=== PATIENT | female | born 1970 | race Two or more races ===

== ENCOUNTER 2024-06-09 18:40 | Emergency (ER) | payer MEDICAID, SELFPAY ==
[2024-06-09 18:57] VITALS: BP 112/77; PULSE 110; RESP 18; TEMP 37.2; O2SAT 96; BMI 54.6
--- NOTE | 2024-06-09 18:59 | PD.EDRME ---
Rapid Medical Screening Exam RME Arrival date/time: 06/09/24 18:40 54 year old female present to ED for c/o abdominal pain for 4 days I have greeted and performed a focused initial assessment of this patient. A comprehensive ED assessment and evaluation of the patient, analysis of all test results, and completion of the medical decision making process will be conducted by additional ED providers. Chief Complaint: Abdominal Pain Time Seen by Provider: 06/09/24 18:45 Vital signs: Vital Signs Temperature 98.9 F 06/09/24 18:57 Pulse Rate 110 H 06/09/24 18:57 Respiratory Rate 18 06/09/24 18:57 Blood Pressure 112/77 06/09/24 18:57 Pulse Oximetry (%) 96 06/09/24 18:57 Oxygen Delivery Method Room Air 06/09/24 18:57
--- NOTE | 2024-06-09 19:00 | EKG_ITS ---
[facility] Test Date: 2024-06-09 Pat Name: MICHAEL PELAEZ Department: Room: - Gender: Female Warp Splitter: : 1970 Requested By: Fernie Richey Order Number: [id number] Reading MD: Fernie Richey Measurements Intervals [place] Rate: 88 P: 35 [place]: 150 QRS: 3 QRSD: 86 T: 17 QT: 300 QTc: 365 Interpretive Statements SINUS RHYTHM WITH MARKED SINUS ARRHYTHMIA LOW QRS VOLTAGE IN PRECORDIAL LEADS [QRS DEFLECTION < 1.0 mV IN CHEST LEADS] Compared to ECG 05/12/2024 14:35:19 Sinus tachycardia no longer present /store/S0/[id number]
[2024-06-09] MEDS: ONDANSETRON ODT 4 MG TABRAP PO (19:06)
[2024-06-09] MEDS: MG HYD/AL HYD/SIME (Maalox Reg) SUSP 30 ML UDC PO (19:07)
[2024-06-09 19:45] LABS: Collection Type, Urine Voided; RBC,Urine 0 /hpf (0-3)
[2024-06-09 20:01] LABS: Basophils % (Auto) 0 % (0-2.5); Monocytes # (Auto) 0.5 Thou/mm3 (0.0-0.8); Nucleated Red Blood Cell % 0 /100 WBC (0); White Blood Count 6.2 Thou/mm3 (3.6-11.0)
[2024-06-09 20:02] LABS: Eosinophils # (Auto) 0.2 Thou/mm3 (0.0-0.5); Eosinophils % (Auto) 3 % (0-10); Hematocrit 28.9 % (36.0-46.0); Immature Granulocytes % (Auto) 1 % (0-0); Immature Granulocytes Auto 0.04 Thou/mm3 (0.00-0.00); Lymphocytes % (Auto) 32 % (10-50); Mean Corpuscular HGB Conc 29.4 g/dl (31.0-37.0); Mean Corpuscular Hemoglobin 23.7 pg (25.0-35.0); Mean Corpuscular Volume 81 fL (80-100); Monocytes % (Auto) 8 % (0-12); Neutrophils # (Auto) 3.5 Thou/mm3 (1.8-7.7); Neutrophils % (Auto) 57 % (37-80); Platelet Count 307 Thou/mm3 (140-440); RDW Standard Deviation 55.6 fL (36.4-46.3); Red Blood Count 3.59 Miln/mm3 (4.00-5.20)
[2024-06-09 20:04] LABS: Hemoglobin 8.5 g/dL (12.0-16.0)
[2024-06-09 20:06] LABS: Beta Hydroxybutyrate 0.1 mmol/L (<0.6)
[2024-06-09 20:10] LABS: Alanine Aminotransferase 24 U/L (10-49); Albumin/Globulin Ratio 1.2 (1.2-2.2); Alkaline Phosphatase 93 U/L (46-116); Anion Gap 9 (7-16); Aspartate Amino Transferase 21 U/L (0-34); BUN/Creatinine Ratio 7 Ratio (12-20); Bilirubin,Total 0.6 mg/dL (0.3-1.2); Blood Urea Nitrogen 8 mg/dL (9-23); Calcium 9.3 mg/dL (8.3-10.6); Calcium (Corrected) 9.3 mg/dL (8.5-10.1); Carbon Dioxide 24.3 mMol/L (20.0-31.0); Chloride 101 mMol/L (98-107); Creatinine (Component) 1.1 mg/dL (0.6-1.3); Globulin 3.4 gm/dL (2.3-3.5); Glucose 113 mg/dL (74-106); Osmolality,Calculated 267 (275-295); Potassium 4.8 mMol/L (3.4-5.1); Sodium 134 mMol/L (136-145); Total Protein 7.4 gm/dL (5.7-8.2); Troponin I < 0.002 ng/mL (0.0-0.045); eGFR 59 See Note
[2024-06-09 20:12] LABS: Bilirubin,Urine Negative (Negative); Blood,Urine Negative (Negative); Clarity,Urine Turbid (Clear/Hazy); Color,Urine Yellow (Lt Yel-Yel); Glucose, Urine 4+ (Negative); Hyaline Casts,Urine < 1 /hpf (0-1); Ketones,Urine Negative (Negative); Leukocyte Esterase,Urine Positive (Negative); Nitrite,Urine Negative (Negative); Protein,Urine Trace (Neg - Trace); Specific Gravity,Urine 1.017 (1.001-1.035); Squamous Epithelial Cell,Urine 4 /hpf (0-5); Urobilinogen,Urine Negative mg/dL (0.0-1.0); WBC,Urine 23 /hpf (0-5)
--- NOTE | 2024-06-09 21:11 | XR_ITS ---
Examination: Abdomen sonogram, Limited Date and time of exam: June 09, 2024 0923 hrs. Indications: Epigastric pain with nausea vomiting beginning 4 days ago Technique: Real-time mancera scale transabdominal sonographic images of the upper abdomen obtained. Findings: Absent gallbladder Common bile duct 0.3 cm no stones Pancreatic head 3.8 cm Liver 24 cm fatty infiltration lobular contour no focal liver lesions Normal hepatopedal portal venous flow Patent IVC Impression: Absent gallbladder Normal common bile duct Prominent pancreatic head, clinical correlation advised Hepatomegaly, primary hepatocellular disease versus cirrhosis no focal liver lesions
[2024-06-09 22:08] VITALS: BP 99/72; PULSE 112; RESP 21; TEMP 36.9; O2SAT 100
[2024-06-09 22:30] VITALS: BP 106/53; PULSE 130; RESP 20; O2SAT 96
[2024-06-09 23:00] VITALS: BP 114/62; PULSE 130; RESP 20; O2SAT 96
[2024-06-09 23:31] VITALS: BP 95/40; PULSE 104; RESP 15; O2SAT 100
--- NOTE | 2024-06-09 23:54 | EDNOTE_ITS ---
ED Abdominal Pain RME/HPI General Chief Complaint: Abdominal Pain Stated complaint: EPIGASTRIC PAIN W/ VOMITING X 4 DAYS; HEADACHE Time seen by provider: 06/09/24 18:45 Arrival date/time: 06/09/24 18:40 Source: patient Mode of arrival: ambulatory Limitations: no limitations RME / HPI RME / HPI narrative: 06/09/24 18:40 54 year old female present to ED for c/o abdominal pain for 4 days I have greeted and performed a focused initial assessment of this patient. A comprehensive ED assessment and evaluation of the patient, analysis of all test results, and completion of the medical decision making process will be conducted by additional ED providers. DR LADD MAIN ED EVALUATION: 54-year-old female patient complaining of epigastric abdominal pain and vomiting x 3. Third episode of vomiting described as yellow and acidic. Patient is currently on Keflex 3 times daily and Bactrim twice daily for an nasal infection per [facility]. History of cholecystectomy. She is on day 7 of 10 of her antibiotics. She states she has been having abdominal pain since starting the medications. Related Data Home Medications ?Medication ?Instructions ?Recorded ?Confirmed docusate sodium 250 mg capsule 250 mg PO QDAY 06/17/22 05/09/24 ferrous sulfate 325 mg (65 mg 325 mg PO TID 06/17/22 05/09/24 iron) tablet (FeroSul) fluticasone 250 mcg-salmeterol 50 1 inh inhalation BID 06/17/22 05/09/24 mcg/dose blistr powdr for inhalation (Advair Diskus) Previous Rx's ?Medication ?Instructions ?Recorded fluticasone 500 mcg-salmeterol 50 1 inh inhalation BID #60 ea 06/20/22 mcg/dose blistr powdr for inhalation (Advair Diskus) metformin 1,000 mg tablet,extended 1,000 mg PO BID #60 tabs 06/20/22 release 24hr (osmotic) albuterol sulfate 90 mcg/actuation 1 inh inhalation QID PRN shortness 06/23/22 aerosol inhaler of breath or wheezing #8.5 grams fluticasone propionate 230 2 puff inhalation BID #12 grams 06/23/22 mcg-salmeterol 21 mcg/actuation HFA inhaler (Advair HFA) famotidine 20 mg tablet (Pepcid) 20 mg PO BID #10 tabs 04/05/23 lidocaine 4 % topical gel 1 applic topical BID #30 grams 04/25/24 rivaroxaban 15 mg (42)-20 mg (9) See Rx Instructions PO .COMPLEX 04/25/24 tablets in a starter pack (Xarelto #51 tabs DVT-PE Treatment 30-Day Starter) clotrimazole 10 mg alejandro 10 mg mucous membrane TID #30 tabs 05/07/24 empagliflozin 25 mg tablet 25 mg PO QDAY #30 tabs 05/07/24 (Jardiance) fluticasone propionate 45 2 puff inhalation BID #12 grams 05/07/24 mcg-salmeterol 21 mcg/actuation HFA inhaler (Advair HFA) ipratropium 20 mcg-albuterol 100 1 puff inhalation Q6H PRN SOB or 05/07/24 mcg/actuation mist for inhalation wheezing #4 grams (Combivent Respimat) pantoprazole 40 mg tablet,delayed 40 mg PO QDAY #30 tabs 05/07/24 release semaglutide 0.25 mg or 0.5 mg (2 0.5 mg (0.736 mL) subcut QWEEK #3 05/07/24 mg/3 mL) subcutaneous pen injector mL tizanidine 2 mg capsule 2 mg PO Q8H PRN muscle spasticity 05/07/24 #30 caps hydrocortisone acetate 25 mg 25 mg ME BID #24 ea 05/12/24 rectal suppository (Hemmorex-HC) sucralfate 100 mg/mL oral 10 ml PO BID #200 mL 06/10/24 suspension (Carafate) Allergies Allergy/AdvReac Type Severity Reaction Status Date / Time lactase [From Dairy Aid] Allergy Mild Gastrointestinal Verified 06/09/24 18:41 Upset latex Allergy Mild Rash, Verified 06/09/24 18:41 Swelling Review of Systems Review of Systems Systems Reviewed: All systems reviewed, normal except as documented Past Medical History Past Medical History NEUROLOGIC: Negative Neurological Disorders or Seizures CARDIAC: Positive Congestive Heart Failure and Hypertension; Negative Cardiac Disorders RESPIRATORY: Positive Chronic Obstructive Pulmonary Disease (COPD), Asthma, Bronchitis, Pneumonia and Sleep Apnea GASTROINTESTINAL: Positive Gastrointestinal Disorders, Gall Bladder Disease, Gastrointestinal Bleed, Ulcer and Obesity GENITOURINARY: Negative Genitourinary Disorders or Renal Disease REPRODUCTIVE: Positive Previous Pregnancies MUSCULOSKELETAL: Positive Arthritis; Negative Musculoskeletal Disorders ENDOCRINE: Positive Endocrine Disorders and Diabetes Mellitus Type 2; Negative Diabetes Mellitus Type 1 HEMATOLOGIC: Positive Anemia; Negative Sickle Cell Disease PSYCHO/SOCIAL: Positive Depression and Anxiety OTHER HISTORY: Positive Blood Transfusions; Negative Autoimmune Disease, Blood Transfusion Reaction, Anesthesia Reactions or Cancer Surgical History SURGICAL: Positive Tubal Ligation and Section Social History SMOKING STATUS: Never smoker SUBSTANCE USE: does not use ED Exam Narrative Physical exam: GENERAL APPEARANCE: alert and oriented x 4, well-developed, well-nourished, no acute distress VITALS: All vitals were reviewed and the pulse ox is 100% on room air, which is normal according to my interpretation. HEENT: Normocephalic, atraumatic; pupils equal, round, reactive to light; EOMI; mucous membranes pink, moist; oropharynx clear NECK: Supple LUNGS: CTABL; no wheezes, no rales, no rhonchi HEART: Regular rate, regular rhythm; normal S1, S2; no murmurs ABDOMEN: non distended; normal BS; soft, no tenderness, no guarding, no rebound; no masses, no organomegaly, no hernia BACK: no CVA tenderness EXTREMITIES: atraumatic; no edema NEUROLOGIC: awake; alert and oriented x4; cranial nerves II-XII grossly intact; no focal sensory or motor deficits PSYCHIATRIC: appropriate mood and affect SKIN: warm, dry, normal color; no rashes General Limitations: Present no limitations Course Quality Measures none Orders Category Date Time Status Bedside Blood Glucose NOW Care 06/09/24 19:00 Completed EKG (ED ONLY) *Do not use* NOW Care 06/09/24 19:00 Completed EKG (ED Only) Stat Exams 06/09/24 19:00 Draft US abdomen limited Stat Exams 06/09/24 21:11 Completed Beta Hydroxybutyrate Stat Lab 06/09/24 19:23 Completed CBC Stat Lab 06/09/24 19:23 Completed CMP [Comprehensive Metabolic Panel] Stat Lab 06/09/24 19:23 Completed Lipase Stat Lab 06/10/24 01:43 Completed Troponin I Stat Lab 06/09/24 19:23 Completed Troponin I Stat Lab 06/10/24 01:43 Completed UA [Urinalysis] Stat Lab 06/09/24 19:34 Completed Urine Culture Stat Lab 06/09/24 19:34 Completed Lidocaine 2% Viscous [Xylocaine 2% Viscous] Med 06/10/24 01:23 Discontinued 15 ml PO X1 ONE Ondansetron Odt [Zofran Odt] Med 06/09/24 19:00 Discontinued 4 mg PO X1 ONE Pantoprazole [Protonix] Med 06/10/24 01:23 Discontinued 40 mg PO X1 ONE mg Hyd/Al Hyd/Luis Susp [Maalox Susp] Med 06/09/24 19:00 Discontinued 30 ml PO X1 ONE mg Hyd/Al Hyd/Luis Susp [Maalox Susp] Med 06/10/24 01:23 Discontinued 30 ml PO X1 ONE Vital Signs Vital signs: Vital Signs Temperature 98.9 F 06/09/24 18:57 Pulse Rate 110 H 06/09/24 18:57 Respiratory Rate 18 06/09/24 18:57 Blood Pressure 112/77 06/09/24 18:57 Pulse Oximetry (%) 96 06/09/24 18:57 Oxygen Delivery Method Room Air 06/09/24 18:57 Abdominal Pain MDM MDM Narrative MDM Narrative:: Scribe Attestation: I, Ayala Carrasco am scribing for and in the presence of Dr. Ladd. Provider Notation: Although this document has been carefully reviewed, there may still be some phonetic and other typographical errors. These errors are purely grammatical due to imperfections in the software program and should not be construed in any way to compromise the substance of the patient's medical care during this visit. Patient data External records reviewed:: [facility] previous records Clinical information provided by:: patient Social determinants that could affect healthcare access:: none Patient has the following chronic illnesses:: Congestive Heart Failure and Hypertension; hronic Obstructive Pulmonary Disease (COPD), Asthma, Bronchitis, Pneumonia and Sleep Apnea; Gall Bladder Disease, Gastrointestinal Bleed, Ulcer and Obesity Arthritis; Diabetes Mellitus Type 2; Anemia How is presenting disease/condition affected by chronic disease/condition?: uneffected by Evaluation data The following diagnostics were reviewed and interpreted by me:: lab results, radiology exam(s) and EKG tracing(s) Lab and/or radiology exams considered but not ordered:: None Interpretation Summary: I personally reviewed and interpreted abdomen US on this patient. Films were reviewed. I agree with the radiologist's interpretation. Examination: Abdomen sonogram, Limited Date and time of exam: June 09, 2024 0923 hrs. Indications: Epigastric pain with nausea vomiting beginning 4 days ago Findings: Absent gallbladder Common bile duct 0.3 cm no stones Pancreatic head 3.8 cm Liver 24 cm fatty infiltration lobular contour no focal liver lesions Normal hepatopedal portal venous flow Patent IVC Impression: Absent gallbladder Normal common bile duct Prominent pancreatic head, clinical correlation advised Hepatomegaly, primary hepatocellular disease versus cirrhosis no focal liver lesions Dictated By: Arsh Cadet MD Medications / Prescriptions Medications or Prescriptions considered but not ordered:: None Medication administrations:: Medication Administration History Discontinued Medications Al Hydrox/Mg Hydrox/Simethicone (Mg Hyd/Al Hyd/Luis (Maalox Reg) Susp 30 Ml Udc) 30 ml PO X1 ONE Stop: 06/09/24 19:01 Last Admin: 06/09/24 19:07 Dose: 30 ml Documented By: Al Hydrox/Mg Hydrox/Simethicone (Mg Hyd/Al Hyd/Luis (Maalox Reg) Susp 30 Ml Udc) 30 ml PO X1 ONE Stop: 06/10/24 01:24 Last Admin: 06/10/24 02:01 Dose: 30 ml Documented By: MARLEY Lidocaine HCl (Lidocaine Viscous 2% 15 Ml Udc) 15 ml PO X1 ONE Stop: 06/10/24 01:24 Last Admin: 06/10/24 02:01 Dose: 15 ml Documented By: MARLEY Ondansetron HCl (Ondansetron Odt 4 Mg Tabrap) 4 mg PO X1 ONE; Protocol Stop: 06/09/24 19:01 Last Admin: 06/09/24 19:06 Dose: 4 mg Documented By: Pantoprazole Sodium (Pantoprazole 40 Mg Tablet) 40 mg PO X1 ONE Stop: 06/10/24 01:24 Last Admin: 06/10/24 02:01 Dose: 40 mg Documented By: SF As above Consultations Consultation(s) initiated? (list below): No Diagnosis Differential diagnosis abdominal pain: abdominal pain, diverticulitis, pancreatitis and small bowel obstruction Most likely diagnosis given after review of the tests above:: Gastritis Admission Indicated Admission indicated?: not indicated Admission Request Was there a request for admission?: No Disposition Plan Disposition Plan: Discharge Discharge Attestation Discharge Attestation: The patient and all family members were given an opportunity to ask questions and understood the discharge instructions. Discharge instructions specifically effects, indications for sooner follow up or return to the emergency department, and the expected course of current diagnosis. Patient condition: Stable Discharge Plan Plan Patient Disposition: HOME (Self Care) Prescriptions/Referrals Prescriptions/Med Rec: New sucralfate [Carafate] 100 mg/mL suspension 10 ml PO BID Qty: 200 0RF No Action semaglutide 0.25 mg or 0.5 mg (2 mg/3 mL) pen injector 0.5 mg subcut QWEEK Qty: 3 0RF pantoprazole 40 mg tablet,delayed release (DR/EC) 40 mg PO QDAY Qty: 30 0RF tizanidine 2 mg capsule 2 mg PO Q8H PRN (Reason: muscle spasticity) Qty: 30 0RF Jardiance 25 mg tablet 25 mg PO QDAY Qty: 30 0RF Combivent Respimat 20-100 mcg/actuation mist 1 puff inhalation Q6H PRN (Reason: SOB or wheezing) Qty: 4 0RF fluticasone propion-salmeterol [Advair HFA] 45-21 mcg/actuation HFA aerosol inhaler 2 puff inhalation BID Qty: 12 0RF clotrimazole 10 mg alejandro 10 mg mucous membrane TID Qty: 30 0RF lidocaine 4 % gel 1 applic topical BID Qty: 30 2RF Xarelto DVT-PE Treat 30d Start 15 mg (42)- 20 mg (9) tablets,dose pack See Rx Instructions .ROUTE .COMPLEX Qty: 51 0RF Rx Instructions: take one-15 mg tablet twice daily for 21 days, then one-20 mg tablet once daily; must take with meal/food hydrocortisone acetate [Hemmorex-HC] 25 mg suppository 25 mg ME BID Qty: 24 0RF ferrous sulfate [FeroSul] 325 mg (65 mg iron) tablet 325 mg PO TID Patient Comments: take 1 tablet by mouth three times a day fluticasone propion-salmeterol [Advair Diskus] 250-50 mcg/dose Blister With Device 1 inh INHALATION BID docusate sodium 250 mg Capsule 250 mg PO QDAY fluticasone propion-salmeterol [Advair Diskus] 500-50 mcg/dose blister with device 1 inh inhalation BID Qty: 60 0RF metformin 1,000 mg tablet extended release 24 hr 1,000 mg PO BID Qty: 60 0RF albuterol sulfate 90 mcg/actuation HFA aerosol inhaler 1 inh inhalation QID PRN (Reason: shortness of breath or wheezing) Qty: 8.5 0RF fluticasone propion-salmeterol [Advair HFA] 230-21 mcg/actuation HFA aerosol inhaler 2 puff inhalation BID Qty: 12 0RF famotidine [Pepcid] 20 mg tablet 20 mg PO BID Qty: 10 0RF Referrals: Bertha Vogt PA-C [Primary Care Provider] - In 1 week Problem List Clinical Impression: Gastritis Patient/Caregiver Discharge Instructions Education Materials: ED Gastritis (Adult) Print Language: Romanian Stand Alone Forms: [employer] Award Info., Patient Portal Info Letter
[2024-06-10] VITALS: BP 123/67; PULSE 114; RESP 16; O2SAT 96
[2024-06-10 00:30] VITALS: BP 122/64; PULSE 117; RESP 20; O2SAT 97
[2024-06-10 01:01] VITALS: BP 119/57; PULSE 118; RESP 19; O2SAT 96
[2024-06-10 01:30] VITALS: BP 96/73; PULSE 117; RESP 20; O2SAT 95
[2024-06-10 02:00] VITALS: BP 100/70; PULSE 106; RESP 20; O2SAT 95
[2024-06-10] MEDS: MG HYD/AL HYD/SIME (Maalox Reg) SUSP 30 ML UDC PO (02:01)
[2024-06-10] MEDS: LIDOCAINE VISCOUS 2% 15 ML UDC PO (02:01)
[2024-06-10] MEDS: PANTOPRAZOLE 40 MG TABLET PO (02:01)
[2024-06-10 02:19] LABS: Lipase 29 U/L (12-53); Troponin I < 0.002 ng/mL (0.0-0.045)
[2024-06-10 03:00] VITALS: BP 113/73; PULSE 117; RESP 18; TEMP 36.7; O2SAT 97
== END 2024-06-10 03:13 | disposition home or self-care (01) ==
PROVIDERS: Physician Assistant; Emergency Provider Emergency Medicine; PCP Physician Assistant
DX: K29.70 Gastritis, unspecified, without bleeding (principal); R16.0 Hepatomegaly, not elsewhere classified
CPT/HCPCS: 36415; 76705; 80053; 81001; 82010; 83690; 84484; 85025; 87086; 93005; 99284; J3490; Q0162; A9270

== ENCOUNTER 2024-06-12 14:49 | Emergency (ER) | payer MEDICAID, SELFPAY ==
[2024-06-12 14:51] VITALS: BP 115/68; PULSE 120; PULSE 128; RESP 18; RESP 23; TEMP 36.8; O2SAT 100; O2SAT 96
[2024-06-12 14:58] VITALS: BMI 52.9
--- NOTE | 2024-06-12 15:03 | PC.NURSE ---
Patient to er via ems from her dr's office, with c/o low bp at their facility, diarrhea x 3 days, headache and abd . pain. Dr. Guardado at bedside.
[2024-06-12 15:06] VITALS: PULSE 128
--- NOTE | 2024-06-12 15:09 | EKG_ITS ---
[facility] Test Date: 2024-06-12 Pat Name: MICHAEL PELAEZ Department: Room: - Gender: Female Rn Nicu: : 1970 Requested By: Michael Guardado Order Number: [id number] Reading MD: Michael Guardado Measurements Intervals [place] Rate: 121 P: [place]: QRS: 5 QRSD: 89 T: 22 QT: 300 QTc: 426 Interpretive Statements ATRIAL FLUTTER/TACHYCARDIA WITH RAPID VENTRICULAR RESPONSE LOW QRS VOLTAGE IN PRECORDIAL LEADS [QRS DEFLECTION < 1.0 mV IN CHEST LEADS] ABNORMAL RHYTHM ECG Compared to ECG 06/09/2024 19:12:35 Sinus rhythm no longer present Sinus arrhythmia no longer present /store/S0/[id number]/[id number]
--- NOTE | 2024-06-12 15:21 | PD.EDADULT ---
ED General RME/HPI General Chief complaint: Neuro Symptoms/Deficit Stated complaint: WEAKNESS Time Seen by Provider: 06/12/24 15:34 Arrival date/time: 06/12/24 14:49 RME / HPI RME / HPI narrative: A 54-year-old female with hx of diabetes and obesity complaining of epigastric abdominal pain and vomiting x 8 days. Patient describes the vomit as yellow and associated with food. Patient states that about 1 week ago her brought boxes from her basement. Patient basement has rats in it. Patient states that she smelled the rat stands from the basement boxes and immediately started feeling vomiting/nausea. Patient states that she is unable to keep any food in her stomach. Every time she attempts to eat she vomits. The only meal that she is able to maintain in her stomach is oatmeal without water. Last episode of vomit was prior to coming in. For the past 3 days he is also experienced watery diarrhea. Patient also feels generalized weakness. She endorses poor oral intake and also poor fluid intake. Denies any fever, chills, shortness of breath, chest pain, palpitations, dizziness. She is not taking any new medications recently. Allergies: latex. Surgical hx includes cholecystectomy. Social history includes occasional alcohol use, denies any illicit substance use or tobacco use. MD complaint: vomitting, diarrhea, poor oral intake Onset (ago): week(s) (1) Related Data Home Medications ?Medication ?Instructions ?Recorded ?Confirmed docusate sodium 250 mg capsule 250 mg PO QDAY 06/17/22 05/09/24 ferrous sulfate 325 mg (65 mg 325 mg PO TID 06/17/22 05/09/24 iron) tablet (FeroSul) fluticasone 250 mcg-salmeterol 50 1 inh inhalation BID 06/17/22 05/09/24 mcg/dose blistr powdr for inhalation (Advair Diskus) Previous Rx's ?Medication ?Instructions ?Recorded fluticasone 500 mcg-salmeterol 50 1 inh inhalation BID #60 ea 06/20/22 mcg/dose blistr powdr for inhalation (Advair Diskus) metformin 1,000 mg tablet,extended 1,000 mg PO BID #60 tabs 06/20/22 release 24hr (osmotic) albuterol sulfate 90 mcg/actuation 1 inh inhalation QID PRN shortness 06/23/22 aerosol inhaler of breath or wheezing #8.5 grams fluticasone propionate 230 2 puff inhalation BID #12 grams 06/23/22 mcg-salmeterol 21 mcg/actuation HFA inhaler (Advair HFA) famotidine 20 mg tablet (Pepcid) 20 mg PO BID #10 tabs 04/05/23 lidocaine 4 % topical gel 1 applic topical BID #30 grams 04/25/24 rivaroxaban 15 mg (42)-20 mg (9) See Rx Instructions PO .COMPLEX 04/25/24 tablets in a starter pack (Xarelto #51 tabs DVT-PE Treatment 30-Day Starter) clotrimazole 10 mg alejandro 10 mg mucous membrane TID #30 tabs 05/07/24 empagliflozin 25 mg tablet 25 mg PO QDAY #30 tabs 05/07/24 (Jardiance) fluticasone propionate 45 2 puff inhalation BID #12 grams 05/07/24 mcg-salmeterol 21 mcg/actuation HFA inhaler (Advair HFA) ipratropium 20 mcg-albuterol 100 1 puff inhalation Q6H PRN SOB or 05/07/24 mcg/actuation mist for inhalation wheezing #4 grams (Combivent Respimat) pantoprazole 40 mg tablet,delayed 40 mg PO QDAY #30 tabs 05/07/24 release semaglutide 0.25 mg or 0.5 mg (2 0.5 mg (0.736 mL) subcut QWEEK #3 05/07/24 mg/3 mL) subcutaneous pen injector mL tizanidine 2 mg capsule 2 mg PO Q8H PRN muscle spasticity 05/07/24 #30 caps hydrocortisone acetate 25 mg 25 mg [place] BID #24 ea 05/12/24 rectal suppository (Hemmorex-HC) sucralfate 100 mg/mL oral 10 ml PO BID #200 mL 06/10/24 suspension (Carafate) famotidine 20 mg tablet 20 mg PO BID 5 days #10 tabs 06/12/24 ondansetron HCl 4 mg tablet 4 mg PO QDAY 5 days #5 tabs 06/12/24 Allergies Allergy/AdvReac Type Severity Reaction Status Date / Time lactase [From Dairy Aid] Allergy Mild Gastrointestinal Verified 06/09/24 18:41 Upset latex Allergy Mild Rash, Verified 06/09/24 18:41 Swelling Review of Systems Review of Systems Systems Reviewed: All systems reviewed, normal except as documented Past Medical History Past Medical History NEUROLOGIC: Negative Neurological Disorders or Seizures CARDIAC: Positive Congestive Heart Failure and Hypertension; Negative Cardiac Disorders RESPIRATORY: Positive Chronic Obstructive Pulmonary Disease (COPD), Asthma, Bronchitis, Pneumonia and Sleep Apnea GASTROINTESTINAL: Positive Gastrointestinal Disorders, Gall Bladder Disease, Gastrointestinal Bleed, Ulcer and Obesity GENITOURINARY: Negative Genitourinary Disorders or Renal Disease REPRODUCTIVE: Positive Previous Pregnancies MUSCULOSKELETAL: Positive Arthritis; Negative Musculoskeletal Disorders ENDOCRINE: Positive Endocrine Disorders and Diabetes Mellitus Type 2; Negative Diabetes Mellitus Type 1 HEMATOLOGIC: Positive Anemia; Negative Sickle Cell Disease PSYCHO/SOCIAL: Positive Depression and Anxiety OTHER HISTORY: Positive Blood Transfusions; Negative Autoimmune Disease, Blood Transfusion Reaction, Anesthesia Reactions or Cancer Surgical History SURGICAL: Positive Tubal Ligation and Section Social History SMOKING STATUS: Never smoker SUBSTANCE USE: does not use ED Exam Narrative Physical exam: Constitutional: well-developed, well-nourished, in no acute distress, lying in bed. HEENT: NCAT, EOMI, reactive round pupils b/l, dry mucous membranes, on room air. Lung: CTAB, no wheezing, no rhonchi, no crackles Heart: Regular S1S2, no murmurs, gallops, or rubs Abdomen: Soft, non-distended, tenderness in the epigastrium, hyperactive bowel sounds in all quadrants, central obesity present. Extremities: No cyanosis, clubbing, no edema of b/l legs, 2+ dorsalis pedis pulses present b/l Neurologic: No focal sensory or motor deficits noted, AOx3, appropriate affect Skin: Warm, dry, no lesions or rashes noted Course Quality Measures none Orders Category Date Time Status Stator Connector Q4H START 00 Care 06/12/24 15:06 Completed CBC Stat Lab 06/12/24 15:30 Completed CMP [Comprehensive Metabolic Panel] Stat Lab 06/12/24 15:30 Completed Ketorolac Inj [Toradol Inj] Med 06/12/24 16:31 Discontinued 15 mg IVP X1 ONE Lidocaine 2% Viscous [Xylocaine 2% Viscous] Med 06/12/24 16:36 Discontinued 15 ml PO X1 ONE Polyeth Glycol/Propylene Glyco [Miralax Pkt] Med 06/12/24 16:31 Discontinued 17 gm PO X1 ONE Sodium Chloride 0.9% 1000 ml [Ns] 1,000 ml Med 06/12/24 15:29 Discontinued IV 999 mls/hr Sodium Chloride 0.9% 1000 ml [Ns] 1,000 ml Med 06/12/24 16:54 Discontinued IV 999 mls/hr mg Hyd/Al Hyd/Luis Susp [Maalox Susp] Med 06/12/24 17:05 Discontinued 30 ml PO X1 ONE EKG (RT) Stat RT 06/12/24 15:09 Draft Vital Signs Vital signs: Vital Signs Temperature 98.2 F 06/12/24 14:51 Pulse Rate 128 H 06/12/24 14:51 Respiratory Rate 23 H 06/12/24 14:51 Blood Pressure 115/68 06/12/24 14:51 Pulse Oximetry (%) 100 06/12/24 14:51 Oxygen Delivery Method Room Air 06/12/24 14:51 [facility] Patient data External records reviewed:: [facility] previous records Clinical information provided by:: patient and spouse Social determinants that could affect healthcare access:: none Patient has the following chronic illnesses:: hx of diabetes and obesity How is presenting disease/condition affected by chronic disease/condition?: exacerbated by Evaluation data The following diagnostics were reviewed and interpreted by me:: lab results and EKG tracing(s) Lab and/or radiology exams considered but not ordered:: N/A Interpretation Summary: EKG showed atrial flutter with a heart rate 121. Medications Medications considered but not ordered:: None Medication administrations:: Medication Administration History Discontinued Medications Al Hydrox/Mg Hydrox/Simethicone (Mg Hyd/Al Hyd/Luis (Maalox Reg) Susp 30 Ml Udc) 30 ml PO X1 ONE Stop: 06/12/24 17:06 Last Admin: 06/12/24 17:15 Dose: 30 ml Documented By: EF Sodium Chloride (Ns) 1,000 mls @ 999 mls/hr IV .Q1H1M ONE Stop: 06/12/24 16:29 Last Infusion: 06/12/24 17:21 Dose: Infused Documented By: Admin: 06/12/24 15:47 Dose: 999 mls/hr Documented By: EF Sodium Chloride (Ns) 1,000 mls @ 999 mls/hr IV .Q1H1M ONE Stop: 06/12/24 17:54 Last Infusion: 06/12/24 18:42 Dose: Infused Documented By: Admin: 06/12/24 17:22 Dose: 999 mls/hr Documented By: NORRIS Ketorolac Tromethamine (Ketorolac Inj 30 Mg/Ml Vial) 15 mg IVP X1 ONE Stop: 06/12/24 16:32 Last Admin: 06/12/24 16:50 Dose: 15 mg Documented By: REX Lidocaine HCl (Lidocaine Viscous 2% 15 Ml Udc) 15 ml PO X1 ONE Stop: 06/12/24 16:37 Last Admin: 06/12/24 16:51 Dose: 15 ml Documented By: REX Polyethylene Glycol (Polyethylene Glycol 17 Gm Packet) 17 gm PO X1 ONE Stop: 06/12/24 16:32 Last Admin: 06/12/24 17:06 Dose: Not Given Documented By: REX Non-Admin Reason: Cancelled by Provider Mellitus, sodium chloride, ketorolac, lidocaine Consultations Consultation(s) initiated? (list below): No Diagnosis Differential Diagnosis ED Complaint MDM: peptic ulcer Most likely diagnosis given after review of the tests above:: Gastroenteritis Admission Indicated Admission indicated?: not indicated Explain why admission is indicated or not indicated:: Admission is not indicated as patient appears clinically hypovolemic requiring fluids. Considering patient had extensive vomiting and diarrhea, patient did not require admission upon fluid resuscitation in the ED. Admission Request Was there a request for admission?: No Disposition Plan Disposition Plan: Discharge Discharge Attestation Discharge Attestation: The patient and all family members were given an opportunity to ask questions and understood the discharge instructions. Discharge instructions specifically effects, indications for sooner follow up or return to the emergency department, and the expected course of current diagnosis. Patient condition: Stable Medical Decision Making MDM Narrative MDM Narrative: A 54-year-old female with hx of diabetes and obesity complaining of epigastric abdominal pain and vomiting x 8 days. Patient describes the vomit as yellow and associated with food. She states that she is unable to tolerate most meals. She was found to be clinically hypovolemic requiring fluids. Her heart rate was elevated at 120s but improved upon fluid recusitation. Considering patient had extensive vomiting and diarrhea, patient did not require admission upon fluid resuscitation in the ED. patient denies any fever, chills, shortness of breath, chest pain or palpitations negating any active signs of infection. Patient is stable clinically for discharge home. Patient will be discharged with famotidine 20 mg tablet twice daily for a total of 5 days and ondansetron 4 mg tablet orally once daily for nausea/vomiting for a total of 5 days. She will follow-up with your PCP in 1 week. If symptoms worsen, she understands to return to the ED. Differential Diagnosis Differential Diagnosis: peptic ulcer Medical Records Medical records reviewed: Yes I reviewed the patient's medical records. Lab Data Lab results reviewed: Yes I reviewed the patient's lab results. 06/12/24 15:30 06/12/24 15:30 Labs: Lab Results 06/12/24 Range/Units 15:30 WBC 6.1 (3.6-11.0) Thou/mm3 RBC 3.57 L (4.00-5.20) Miln/mm3 Hgb 8.6 L (12.0-16.0) g/dL Hct 29.5 L (36.0-46.0) % MCV 83 (80-100) fL MCH 24.1 L (25.0-35.0) pg MCHC 29.2 L (31.0-37.0) g/dl RDW Std Deviation 57.1 H (36.4-46.3) fL Plt Count 273 D (140-440) Thou/mm3 Neut % (Auto) 51 (37-80) % Lymph % (Auto) 35 (10-50) % [place] % (Auto) 12 (0-12) % Eos % (Auto) 2 (0-10) % Baso % (Auto) 0 (0-2.5) % Neut # (Auto) 3.1 (1.8-7.7) Thou/mm3 Lymph # (Auto) 2.2 (1.0-4.8) Thou/mm3 [place] # (Auto) 0.7 (0.0-0.8) Thou/mm3 Eos # (Auto) 0.1 (0.0-0.5) Thou/mm3 Baso # (Auto) 0.0 (0.0-0.2) Thou/mm3 Immature Gran # (Auto) 0.02 H (0.00-0.00) Thou/mm3 Absolute Nucleated RBC 0.00 (0.00-0.00) Thou/mm3 Immature Gran % 0 (0-0) % Nucleated RBC % 0 (0) /100 WBC Sodium 133 L (136-145) mMol/L Potassium 4.4 (3.4-5.1) mMol/L Chloride 101 (98-107) mMol/L Carbon Dioxide 22.4 (20.0-31.0) mMol/L Anion Gap 10 (7-16) BUN 7 L (9-23) mg/dL Creatinine 1.1 (0.6-1.3) mg/dL Estim Creat Clear Calc 72.5 (>60) mL/min eGFR 59 L (60 - ) See Note BUN/Creatinine Ratio 6 L (12-20) Ratio Glucose 132 H (74-106) mg/dL Calculated Osmolality 266 L (275-295) Calcium 8.7 (8.3-10.6) mg/dL Corrected Calcium 9.0 (8.5-10.1) mg/dL Total Bilirubin 0.7 (0.3-1.2) mg/dL AST 27 (0-34) U/L ALT 13 (10-49) U/L Alkaline Phosphatase 83 (46-116) U/L Total Protein 7.0 (5.7-8.2) gm/dL Albumin 3.6 (3.5-5.0) gm/dL Globulin 3.4 (2.3-3.5) gm/dL Albumin/Globulin Ratio 1.1 L (1.2-2.2) Radiology Data Radiology results reviewed: Yes I reviewed the patient's radiology results. Discharge Plan Plan Patient Disposition: HOME (Self Care) Patient condition on transfer: Stable Health Concerns: Please start famotidine 20 mg tablet twice daily for stomach pain for a total of 5 days. Please start ondansetron 4 mg tablet orally once daily for nausea/vomiting for a total of 5 days. Please continue home medications as previously prescribed. Please follow-up with your PCP in 1 week. If symptoms worsen, please return to the ED. Prescriptions/Referrals Prescriptions/Med Rec: New famotidine 20 mg tablet 20 mg PO BID 5 Days Qty: 10 0RF ondansetron HCl 4 mg tablet 4 mg PO QDAY 5 Days Qty: 5 0RF No Action semaglutide 0.25 mg or 0.5 mg (2 mg/3 mL) pen injector 0.5 mg subcut QWEEK Qty: 3 0RF pantoprazole 40 mg tablet,delayed release (DR/EC) 40 mg PO QDAY Qty: 30 0RF tizanidine 2 mg capsule 2 mg PO Q8H PRN (Reason: muscle spasticity) Qty: 30 0RF Jardiance 25 mg tablet 25 mg PO QDAY Qty: 30 0RF Combivent Respimat 20-100 mcg/actuation mist 1 puff inhalation Q6H PRN (Reason: SOB or wheezing) Qty: 4 0RF fluticasone propion-salmeterol [Advair HFA] 45-21 mcg/actuation HFA aerosol inhaler 2 puff inhalation BID Qty: 12 0RF clotrimazole 10 mg alejandro 10 mg mucous membrane TID Qty: 30 0RF lidocaine 4 % gel 1 applic topical BID Qty: 30 2RF Xarelto DVT-PE Treat 30d Start 15 mg (42)- 20 mg (9) tablets,dose pack See Rx Instructions .ROUTE .COMPLEX Qty: 51 0RF Rx Instructions: take one-15 mg tablet twice daily for 21 days, then one-20 mg tablet once daily; must take with meal/food hydrocortisone acetate [Hemmorex-HC] 25 mg suppository 25 mg [place] BID Qty: 24 0RF ferrous sulfate [FeroSul] 325 mg (65 mg iron) tablet 325 mg PO TID Patient Comments: take 1 tablet by mouth three times a day fluticasone propion-salmeterol [Advair Diskus] 250-50 mcg/dose Blister With Device 1 inh INHALATION BID docusate sodium 250 mg Capsule 250 mg PO QDAY fluticasone propion-salmeterol [Advair Diskus] 500-50 mcg/dose blister with device 1 inh inhalation BID Qty: 60 0RF metformin 1,000 mg tablet extended release 24 hr 1,000 mg PO BID Qty: 60 0RF albuterol sulfate 90 mcg/actuation HFA aerosol inhaler 1 inh inhalation QID PRN (Reason: shortness of breath or wheezing) Qty: 8.5 0RF fluticasone propion-salmeterol [Advair HFA] 230-21 mcg/actuation HFA aerosol inhaler 2 puff inhalation BID Qty: 12 0RF famotidine [Pepcid] 20 mg tablet 20 mg PO BID Qty: 10 0RF sucralfate [Carafate] 100 mg/mL suspension 10 ml PO BID Qty: 200 0RF Problem List Clinical Impression: Gastroenteritis, Food poisoning, Gastritis Patient/Caregiver Discharge Instructions Print Language: Bulgarian Stand Alone Forms: [employer] Award Info., Patient Portal Info Letter MD Attestation MD Attestation The patient was seen by the PGY-2. I, the supervising physician, also encountered and examined the patient while remaining present during the entire ER visit. I was available for consultation as needed. Working with the PGY 2, management, treatment plan, and documentation were formulated. I agree with the plan and documentation.
[2024-06-12 15:31] VITALS: BP 95/56; PULSE 117; RESP 22; TEMP 36.5; O2SAT 97
[2024-06-12] MEDS: SODIUM CHLORIDE 0.9% 1000 ML 1,000 ML 999 ML IV ×2 (15:47→17:22)
[2024-06-12 15:56] LABS: Basophils % (Auto) 0 % (0-2.5); Eosinophils # (Auto) 0.1 Thou/mm3 (0.0-0.5); Eosinophils % (Auto) 2 % (0-10); Hematocrit 29.5 % (36.0-46.0); Immature Granulocytes % (Auto) 0 % (0-0); Immature Granulocytes Auto 0.02 Thou/mm3 (0.00-0.00); Lymphocytes # (Auto) 2.2 Thou/mm3 (1.0-4.8); Lymphocytes % (Auto) 35 % (10-50); Mean Corpuscular HGB Conc 29.2 g/dl (31.0-37.0); Mean Corpuscular Hemoglobin 24.1 pg (25.0-35.0); Mean Corpuscular Volume 83 fL (80-100); Monocytes # (Auto) 0.7 Thou/mm3 (0.0-0.8); Monocytes % (Auto) 12 % (0-12); Neutrophils # (Auto) 3.1 Thou/mm3 (1.8-7.7); Neutrophils % (Auto) 51 % (37-80); Nucleated Red Blood Cell % 0 /100 WBC (0); Platelet Count 273 Thou/mm3 (140-440); RDW Standard Deviation 57.1 fL (36.4-46.3); Red Blood Count 3.57 Miln/mm3 (4.00-5.20); White Blood Count 6.1 Thou/mm3 (3.6-11.0)
[2024-06-12 15:58] LABS: Hemoglobin 8.6 g/dL (12.0-16.0)
[2024-06-12 16:05] LABS: Alanine Aminotransferase 13 U/L (10-49); Albumin, Serum 3.6 gm/dL (3.5-5.0); Albumin/Globulin Ratio 1.1 (1.2-2.2); Alkaline Phosphatase 83 U/L (46-116); Anion Gap 10 (7-16); Aspartate Amino Transferase 27 U/L (0-34); BUN/Creatinine Ratio 6 Ratio (12-20); Bilirubin,Total 0.7 mg/dL (0.3-1.2); Blood Urea Nitrogen 7 mg/dL (9-23); Calcium 8.7 mg/dL (8.3-10.6); Carbon Dioxide 22.4 mMol/L (20.0-31.0); Chloride 101 mMol/L (98-107); Creatinine (Component) 1.1 mg/dL (0.6-1.3); Estimated Creatinine Clearance 72.5 mL/min (>60); Globulin 3.4 gm/dL (2.3-3.5); Glucose 132 mg/dL (74-106); Osmolality,Calculated 266 (275-295); Potassium 4.4 mMol/L (3.4-5.1); Sodium 133 mMol/L (136-145); eGFR 59 See Note
[2024-06-12 16:16] VITALS: BP 112/51; PULSE 93; RESP 19; O2SAT 98
--- NOTE | 2024-06-12 16:49 | PC.NURSE ---
called pharmacy to bring mirelax to the er, not in out er pyxis.
[2024-06-12] MEDS: KETOROLAC INJ 30 MG/ML VIAL 15 MG IVP (16:50)
[2024-06-12] MEDS: LIDOCAINE VISCOUS 2% 15 ML UDC PO (16:51)
[2024-06-12 17:10] VITALS: BP 113/51; PULSE 91; RESP 20; TEMP 36.8; O2SAT 98
[2024-06-12] MEDS: MG HYD/AL HYD/SIME (Maalox Reg) SUSP 30 ML UDC PO (17:15)
[2024-06-12 18:27] VITALS: BP 98/56; PULSE 78; RESP 20; TEMP 36.6; O2SAT 97
== END 2024-06-12 18:45 | disposition home or self-care (01) ==
PROVIDERS: Student in an Organized Health Care Education/Training Program; Emergency Provider Emergency Medicine; PCP Family Medicine
DX: A05.9 Bacterial foodborne intoxication, unspecified (principal); K29.70 Gastritis, unspecified, without bleeding
CPT/HCPCS: 36415; 80053; 85025; 93005; 96360; 96361; 96374; 99284; J1885; J3490; J7030; A9270

== ENCOUNTER 2024-06-24 14:17 | Emergency (ER) | payer MEDICAID, SELFPAY ==
[2024-06-24 14:43] VITALS: BP 117/72; PULSE 108; RESP 18; TEMP 36.4; O2SAT 99; BMI 54.2
--- NOTE | 2024-06-24 15:00 | PD.EDRME ---
Rapid Medical Screening Exam RME Arrival date/time: 06/24/24 14:17 Chief Complaint: General Adult/Misc Complain Time Seen by Provider: 06/24/24 14:50 Vital signs: Vital Signs Temperature 97.6 F 06/24/24 14:43 Pulse Rate 108 H 06/24/24 14:43 Respiratory Rate 18 06/24/24 14:43 Blood Pressure 117/72 06/24/24 14:43 Pulse Oximetry (%) 99 06/24/24 14:43 Oxygen Delivery Method Room Air 06/24/24 14:43 RME Narrative: c/o lower abdominal pain, H/A and bilateral leg burning pain
[2024-06-24 15:25] LABS: Basophils % (Auto) 0 % (0-2.5); Eosinophils # (Auto) 0.1 Thou/mm3 (0.0-0.5); Eosinophils % (Auto) 2 % (0-10); Hematocrit 30.7 % (36.0-46.0); Immature Granulocytes % (Auto) 0 % (0-0); Lymphocytes # (Auto) 1.2 Thou/mm3 (1.0-4.8); Lymphocytes % (Auto) 30 % (10-50); Mean Corpuscular HGB Conc 29.3 g/dl (31.0-37.0); Mean Corpuscular Hemoglobin 24.3 pg (25.0-35.0); Mean Corpuscular Volume 83 fL (80-100); Monocytes # (Auto) 0.5 Thou/mm3 (0.0-0.8); Monocytes % (Auto) 13 % (0-12); Neutrophils # (Auto) 2.1 Thou/mm3 (1.8-7.7); Neutrophils % (Auto) 55 % (37-80); Nucleated Red Blood Cell % 0 /100 WBC (0); Platelet Count 182 Thou/mm3 (140-440); RDW Standard Deviation 57.1 fL (36.4-46.3); Red Blood Count 3.71 Miln/mm3 (4.00-5.20); White Blood Count 3.9 Thou/mm3 (3.6-11.0)
[2024-06-24 15:42] LABS: Alanine Aminotransferase 16 U/L (10-49); Albumin, Serum 3.1 gm/dL (3.5-5.0); Albumin/Globulin Ratio 0.8 (1.2-2.2); Alkaline Phosphatase 102 U/L (46-116); Anion Gap 7 (7-16); Aspartate Amino Transferase 41 U/L (0-34); BUN/Creatinine Ratio 8 Ratio (12-20); Bilirubin,Total 0.4 mg/dL (0.3-1.2); Blood Urea Nitrogen 7 mg/dL (9-23); Calcium 8.4 mg/dL (8.3-10.6); Calcium (Corrected) 9.1 mg/dL (8.5-10.1); Carbon Dioxide 26.8 mMol/L (20.0-31.0); Chloride 103 mMol/L (98-107); Creatinine (Component) 0.9 mg/dL (0.6-1.3); Globulin 3.7 gm/dL (2.3-3.5); Glucose 118 mg/dL (74-106); Lipase 24 U/L (12-53); Osmolality,Calculated 272 (275-295); Potassium 3.6 mMol/L (3.4-5.1); Sodium 137 mMol/L (136-145); Total Protein 6.8 gm/dL (5.7-8.2); eGFR > 60 See Note
[2024-06-24 15:47] LABS: Collection Type, Urine Clean Catch
[2024-06-24 16:00] LABS: Bilirubin,Urine Negative (Negative); Blood,Urine Negative (Negative); Clarity,Urine Turbid (Clear/Hazy); Color,Urine Yellow (Lt Yel-Yel); Glucose, Urine Negative (Negative); Hyaline Casts,Urine < 1 /hpf (0-1); Ketones,Urine Trace (Negative); Leukocyte Esterase,Urine Positive (Negative); Nitrite,Urine Negative (Negative); Protein,Urine 1+ (Neg - Trace); RBC,Urine 3 /hpf (0-3); Specific Gravity,Urine 1.024 (1.001-1.035); Squamous Epithelial Cell,Urine 4 /hpf (0-5); WBC,Urine 4 /hpf (0-5)
--- NOTE | 2024-06-24 16:54 | PD.EDADULT ---
ED General RME/HPI General Chief complaint: General Adult/Misc Complain Stated complaint: MULTIPLE COMPLAINS, RASH UNDER HER ABD, LEG PAIN Time Seen by Provider: 06/24/24 14:50 Arrival date/time: 06/24/24 14:17 CC: Burning and lower abdominal pain lower leg pain HPI ongoing for the past 10 days all onset at the same time denies any fever chills shortness of breath difficulty breathing. 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 RME / HPI RME / HPI narrative: c/o lower abdominal pain, H/A and bilateral leg burning pain Related Data Home Medications ?Medication ?Instructions ?Recorded ?Confirmed docusate sodium 250 mg capsule 250 mg PO QDAY 06/17/22 05/09/24 ferrous sulfate 325 mg (65 mg 325 mg PO TID 06/17/22 05/09/24 iron) tablet (FeroSul) fluticasone 250 mcg-salmeterol 50 1 inh inhalation BID 06/17/22 05/09/24 mcg/dose blistr powdr for inhalation (Advair Diskus) Previous Rx's ?Medication ?Instructions ?Recorded fluticasone 500 mcg-salmeterol 50 1 inh inhalation BID #60 ea 06/20/22 mcg/dose blistr powdr for inhalation (Advair Diskus) metformin 1,000 mg tablet,extended 1,000 mg PO BID #60 tabs 06/20/22 release 24hr (osmotic) albuterol sulfate 90 mcg/actuation 1 inh inhalation QID PRN shortness 06/23/22 aerosol inhaler of breath or wheezing #8.5 grams fluticasone propionate 230 2 puff inhalation BID #12 grams 06/23/22 mcg-salmeterol 21 mcg/actuation HFA inhaler (Advair HFA) famotidine 20 mg tablet (Pepcid) 20 mg PO BID #10 tabs 04/05/23 lidocaine 4 % topical gel 1 applic topical BID #30 grams 04/25/24 rivaroxaban 15 mg (42)-20 mg (9) See Rx Instructions PO .COMPLEX 04/25/24 tablets in a starter pack (Xarelto #51 tabs DVT-PE Treatment 30-Day Starter) clotrimazole 10 mg alejandro 10 mg mucous membrane TID #30 tabs 05/07/24 empagliflozin 25 mg tablet 25 mg PO QDAY #30 tabs 05/07/24 (Jardiance) fluticasone propionate 45 2 puff inhalation BID #12 grams 05/07/24 mcg-salmeterol 21 mcg/actuation HFA inhaler (Advair HFA) ipratropium 20 mcg-albuterol 100 1 puff inhalation Q6H PRN SOB or 05/07/24 mcg/actuation mist for inhalation wheezing #4 grams (Combivent Respimat) pantoprazole 40 mg tablet,delayed 40 mg PO QDAY #30 tabs 05/07/24 release semaglutide 0.25 mg or 0.5 mg (2 0.5 mg (0.736 mL) subcut QWEEK #3 05/07/24 mg/3 mL) subcutaneous pen injector mL tizanidine 2 mg capsule 2 mg PO Q8H PRN muscle spasticity 05/07/24 #30 caps hydrocortisone acetate 25 mg 25 mg NC BID #24 ea 05/12/24 rectal suppository (Hemmorex-HC) sucralfate 100 mg/mL oral 10 ml PO BID #200 mL 06/10/24 suspension (Carafate) furosemide 40 mg tablet (Lasix) 40 mg PO QAM #3 tabs 06/24/24 Allergies Allergy/AdvReac Type Severity Reaction Status Date / Time lactase [From Dairy Aid] Allergy Mild Gastrointestinal Verified 06/24/24 14:21 Upset latex Allergy Mild Rash, Verified 06/24/24 14:21 Swelling Review of Systems Review of Systems Narrative Review of Systems: GEN: No fever, no chills, no weight loss EYES: No discharge, no visual changes, no pain HEENT: No ear pain, no congestion, no sore throat PULM: No shortness of breath, no cough, no congestion CV: No chest pain, no dyspnea on exertion, no palpitations GI: No nausea, no vomiting, no diarrhea, + pain, no constipation : No frequency, no urgency, no dysuria MUSC/SKEL: No joint pain, no back pain,+ lower extremity pain SKIN: No rash PSYCH: No hallucinations, no depression HEME/LYMPH: No easy bleeding or bruising tendencies NEURO: No weakness, no headache Past Medical History Past Medical History NEUROLOGIC: Negative Neurological Disorders or Seizures CARDIAC: Positive Congestive Heart Failure and Hypertension; Negative Cardiac Disorders RESPIRATORY: Positive Chronic Obstructive Pulmonary Disease (COPD), Asthma, Bronchitis, Pneumonia and Sleep Apnea GASTROINTESTINAL: Positive Gastrointestinal Disorders, Gall Bladder Disease, Gastrointestinal Bleed, Ulcer and Obesity GENITOURINARY: Negative Genitourinary Disorders or Renal Disease REPRODUCTIVE: Positive Previous Pregnancies MUSCULOSKELETAL: Positive Arthritis; Negative Musculoskeletal Disorders ENDOCRINE: Positive Endocrine Disorders and Diabetes Mellitus Type 2; Negative Diabetes Mellitus Type 1 HEMATOLOGIC: Positive Anemia; Negative Sickle Cell Disease PSYCHO/SOCIAL: Positive Depression and Anxiety OTHER HISTORY: Positive Blood Transfusions; Negative Autoimmune Disease, Blood Transfusion Reaction, Anesthesia Reactions or Cancer Surgical History SURGICAL: Positive Tubal Ligation and Section Social History SMOKING STATUS: Never smoker SUBSTANCE USE: does not use ED Exam Narrative Physical exam: [General: Morbidly obese not in any acute distress Head normocephalic HEENT: Within acceptable limits Neck is supple nontender Chest equal chest rise nontender to palpation Respiratory: Clear to auscultation no wheezes crackles or rubs CV: Rate rhythm is regular no murmurs rubs or clicks Abdomen is distended secondary to body habitus, large pannus, that has a vertical separation of the center secondary to an old surgery there is some firmness at the base of the pannus, but no surrounding erythema or edema. No open lesions induration ulcerations or crepitus. Back: No CVA tenderness no spinous process tenderness from cervical spine thoracic and lumbar spine Skin: Lower extremities: The patient has very mild erythema to lower extremities it is mildly tender to palpation not warm to touch, no edema no open lesions or indurations. Otherwise skin is intact no petechiae rash induration ulceration or crepitus Extremities: Moving all extremity against resistance cap refill less than 2 seconds neurosensory intact Neuro: Awake alert oriented x3 Glascow coma 15 no focal deficits] Course Quality Measures none Orders Category Date Time Status CBC Stat Lab 06/24/24 15:10 Completed CMP [Comprehensive Metabolic Panel] Stat Lab 06/24/24 15:10 Completed Lipase Stat Lab 06/24/24 15:10 Completed UA [Urinalysis] Stat Lab 06/24/24 15:30 Completed Vital Signs Vital signs: Vital Signs Temperature 97.6 F 06/24/24 14:43 Pulse Rate 108 H 06/24/24 14:43 Respiratory Rate 18 06/24/24 14:43 Blood Pressure 117/72 06/24/24 14:43 Pulse Oximetry (%) 99 06/24/24 14:43 Oxygen Delivery Method Room Air 06/24/24 14:43 [facility] Patient data External records reviewed:: [facility] previous records Clinical information provided by:: patient Social determinants that could affect healthcare access:: none Patient has the following chronic illnesses:: Morbid obesity anemia GERD diabetes How is presenting disease/condition affected by chronic disease/condition?: exacerbated by Evaluation data The following diagnostics were reviewed and interpreted by me:: lab results Lab and/or radiology exams considered but not ordered:: CBC shows a significant anemia but improved from the last visit, no leukocytosis or thrombocytopenia CMP shows elevated blood glucose level no other electrolyte imbalances renal impairment transaminitis or T. bili elevation Urine is negative Lipase is 24 Interpretation Summary: SPECT patient's complaint is secondary to fluid retention in the pannus of the abdomen and the lower extremities. This combined with the patient recently been taken off her Lasix by her pig furnace operator may be result. Patient will be put back on 3 days of Lasix and then she is to follow-up with her primary care or her pig furnace operator, with whom she has a scheduled appointment in 6 weeks. Medications Medications considered but not ordered:: None Medication administrations:: None Consultations Consultation(s) initiated? (list below): No Diagnosis Differential Diagnosis ED Complaint MDM: Cellulitis abscess DVT Most likely diagnosis given after review of the tests above:: Lower extremity edema Admission Indicated Admission indicated?: not indicated Explain why admission is indicated or not indicated:: Stable for outpatient follow-up Admission Request Was there a request for admission?: No Disposition Plan Disposition Plan: Discharge Discharge Attestation Discharge Attestation: The patient and all family members were given an opportunity to ask questions and understood the discharge instructions. Discharge instructions specifically effects, indications for sooner follow up or return to the emergency department, and the expected course of current diagnosis. Patient condition: Stable Medical Decision Making Differential Diagnosis Differential Diagnosis: Cellulitis abscess DVT Lab Data 06/24/24 15:10 06/24/24 15:10 Labs: Lab Results 06/24/24 06/24/24 Range/Units 15:10 15:30 WBC 3.9 (3.6-11.0) Thou/mm3 RBC 3.71 L (4.00-5.20) Miln/mm3 Hgb 9.0 L (12.0-16.0) g/dL Hct 30.7 L (36.0-46.0) % MCV 83 (80-100) fL MCH 24.3 L (25.0-35.0) pg MCHC 29.3 L (31.0-37.0) g/dl RDW Std Deviation 57.1 H (36.4-46.3) fL Plt Count 182 D (140-440) Thou/mm3 Neut % (Auto) 55 (37-80) % Lymph % (Auto) 30 (10-50) % [place] % (Auto) 13 H (0-12) % Eos % (Auto) 2 (0-10) % Baso % (Auto) 0 (0-2.5) % Neut # (Auto) 2.1 (1.8-7.7) Thou/mm3 Lymph # (Auto) 1.2 (1.0-4.8) Thou/mm3 [place] # (Auto) 0.5 (0.0-0.8) Thou/mm3 Eos # (Auto) 0.1 (0.0-0.5) Thou/mm3 Baso # (Auto) 0.0 (0.0-0.2) Thou/mm3 Immature Gran # (Auto) 0.00 (0.00-0.00) Thou/mm3 Absolute Nucleated RBC 0.00 (0.00-0.00) Thou/mm3 Immature Gran % 0 (0-0) % Nucleated RBC % 0 (0) /100 WBC Sodium 137 (136-145) mMol/L Potassium 3.6 (3.4-5.1) mMol/L Chloride 103 (98-107) mMol/L Carbon Dioxide 26.8 (20.0-31.0) mMol/L Anion Gap 7 (7-16) BUN 7 L (9-23) mg/dL Creatinine 0.9 (0.6-1.3) mg/dL Estim Creat Clear Calc 90.0 (>60) mL/min eGFR > 60 (60 - ) See Note BUN/Creatinine Ratio 8 L (12-20) Ratio Glucose 118 H (74-106) mg/dL Calculated Osmolality 272 L (275-295) Calcium 8.4 (8.3-10.6) mg/dL Corrected Calcium 9.1 (8.5-10.1) mg/dL Total Bilirubin 0.4 (0.3-1.2) mg/dL AST 41 H (0-34) U/L ALT 16 (10-49) U/L Alkaline Phosphatase 102 (46-116) U/L Total Protein 6.8 (5.7-8.2) gm/dL Albumin 3.1 L (3.5-5.0) gm/dL Globulin 3.7 H (2.3-3.5) gm/dL Albumin/Globulin Ratio 0.8 L (1.2-2.2) Lipase 24 (12-53) U/L Ur Collection Type Clean Catch Urine Color Yellow (Lt Yel-Yel) Urine Clarity Turbid A (Clear/Hazy) Urine pH 6.0 (5.0-7.0) Ur Specific [place] 1.024 (1.001-1.035) Urine Protein 1+ A (Neg - Trace) Urine Glucose (UA) Negative (Negative) Urine Ketones Trace (Negative) Urine Blood Negative (Negative) Urine Nitrite Negative (Negative) Urine Bilirubin Negative (Negative) Urine Urobilinogen (Auto) 2.0 (0.0-1.0) mg/dL Ur Leukocyte Esterase Positive (Negative) Urine RBC 3 (0-3) /hpf Urine WBC 4 (0-5) /hpf Ur Squamous Epith Cells 4 (0-5) /hpf Urine Bacteria None (None) Hyaline Casts < 1 (0-1) /hpf Discharge Plan Plan Patient Disposition: HOME (Self Care) Patient condition on transfer: Stable Prescriptions/Referrals Prescriptions/Med Rec: New furosemide [Lasix] 40 mg tablet 40 mg PO QAM Qty: 3 0RF No Action semaglutide 0.25 mg or 0.5 mg (2 mg/3 mL) pen injector 0.5 mg subcut QWEEK Qty: 3 0RF pantoprazole 40 mg tablet,delayed release (DR/EC) 40 mg PO QDAY Qty: 30 0RF tizanidine 2 mg capsule 2 mg PO Q8H PRN (Reason: muscle spasticity) Qty: 30 0RF Jardiance 25 mg tablet 25 mg PO QDAY Qty: 30 0RF Combivent Respimat 20-100 mcg/actuation mist 1 puff inhalation Q6H PRN (Reason: SOB or wheezing) Qty: 4 0RF fluticasone propion-salmeterol [Advair HFA] 45-21 mcg/actuation HFA aerosol inhaler 2 puff inhalation BID Qty: 12 0RF clotrimazole 10 mg alejandro 10 mg mucous membrane TID Qty: 30 0RF lidocaine 4 % gel 1 applic topical BID Qty: 30 2RF Xarelto DVT-PE Treat 30d Start 15 mg (42)- 20 mg (9) tablets,dose pack See Rx Instructions .ROUTE .COMPLEX Qty: 51 0RF Rx Instructions: take one-15 mg tablet twice daily for 21 days, then one-20 mg tablet once daily; must take with meal/food hydrocortisone acetate [Hemmorex-HC] 25 mg suppository 25 mg NC BID Qty: 24 0RF ferrous sulfate [FeroSul] 325 mg (65 mg iron) tablet 325 mg PO TID Patient Comments: take 1 tablet by mouth three times a day fluticasone propion-salmeterol [Advair Diskus] 250-50 mcg/dose Blister With Device 1 inh INHALATION BID docusate sodium 250 mg Capsule 250 mg PO QDAY fluticasone propion-salmeterol [Advair Diskus] 500-50 mcg/dose blister with device 1 inh inhalation BID Qty: 60 0RF metformin 1,000 mg tablet extended release 24 hr 1,000 mg PO BID Qty: 60 0RF albuterol sulfate 90 mcg/actuation HFA aerosol inhaler 1 inh inhalation QID PRN (Reason: shortness of breath or wheezing) Qty: 8.5 0RF fluticasone propion-salmeterol [Advair HFA] 230-21 mcg/actuation HFA aerosol inhaler 2 puff inhalation BID Qty: 12 0RF famotidine [Pepcid] 20 mg tablet 20 mg PO BID Qty: 10 0RF sucralfate [Carafate] 100 mg/mL suspension 10 ml PO BID Qty: 200 0RF Referrals: Jarred Lopez MD [Primary Care Provider] - In 1 week Problem List Clinical Impression: Morbid obesity, Edema of both lower extremities Patient/Caregiver Discharge Instructions Other Activity Instructions:: Take the Lasix pill for the next 3 days follow-up with your primary care provider. Education Materials: Taking a Diuretic Print Language: Chinese Stand Alone Forms: [employer] Info., Patient Portal Info Letter, Work/School Release PA/LABORER WHARF Supervising Physician PA/LABORER WHARF Supervising Physician: Anton Alex ENP
[2024-06-24 16:55] VITALS: BP 123/66; PULSE 100; RESP 16; TEMP 36.7; O2SAT 100
== END 2024-06-24 17:25 | disposition home or self-care (01) ==
PROVIDERS: Physician Assistant; Emergency Provider Emergency Medicine; PCP Family Medicine
DX: R60.0 Localized edema (principal); E66.01 Morbid (severe) obesity due to excess calories; Z68.43 Body mass index [BMI] 50.0-59.9, adult
CPT/HCPCS: 36415; 80053; 81001; 83690; 85025; 99283

== ENCOUNTER 2024-09-26 15:54 | Emergency (ER) | payer MEDICAID, SELFPAY ==
[2024-09-26 16:08] VITALS: BP 168/94; PULSE 103; RESP 18; TEMP 36.8; O2SAT 96; BMI 51.5
--- NOTE | 2024-09-26 16:16 | EKG_ITS ---
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
--- NOTE | 2024-09-26 16:16 | XR_ITS ---
Examination: CT abdomen and pelvis without contrast. Coronal 3-D reconstructions. Sagittal 2-D reconstructions. Date and time of exam:September 26, 2024 at 1820 hours Comparison February 21, 2024 INDICATIONS: Onset abdominal pain beginning 2 days ago CTDI: vol (mGy): 20.4 DLP: (mGycm): 1191 Technique: Axial images of the abdomen have been obtained, 3 mm slice thickness Intravenous contrast material has not been administered. Low dose protocols were performed. One or more of the following dose reduction techniques were used; automated exposure control, adjustment of the mA and/or KV according to patient size, use of iterative reconstruction technique. Findings: Liver mildly irregular in contour, hepatomegaly 23 cm fatty infiltration Absent gallbladder. No pancreatic or adrenal mass. [id number] bilateral renal parenchymal scar formation, no renal or ureteral calculi Right lateral abdominal wall hernia defect, 4.9 cm, containing fat and fluid No bowel obstruction Normal appendix Contracted urinary bladder Anteverted uterus, no pelvic mass Significant osteopenia Impression: Significant hepatomegaly, fatty infiltration throughout the liver, primary hepatocellular disease. Right lateral abdominal wall hernia defect, 4.9 cm, containing fat and fluid Normal appendix No bowel obstruction
--- NOTE | 2024-09-26 16:16 | PD.EDRME ---
Rapid Medical Screening Exam RME Arrival date/time: 09/26/24 15:54 Emergency Department today complaints of generalized upper abdominal pain patient ports history of cholecystectomy Chief Complaint: Abdominal Pain Vital signs: Vital Signs Temperature 98.2 F 09/26/24 16:08 Pulse Rate 103 H 09/26/24 16:08 Respiratory Rate 18 09/26/24 16:08 Blood Pressure 168/94 H 09/26/24 16:08 Pulse Oximetry (%) 96 09/26/24 16:08 Oxygen Delivery Method Room Air 09/26/24 16:08
[2024-09-26 17:28] LABS: Basophils % (Auto) 0 % (0-2.5); Eosinophils # (Auto) 0.1 Thou/mm3 (0.0-0.5); Eosinophils % (Auto) 1 % (0-10); Hematocrit 28.5 % (36.0-46.0); Immature Granulocytes % (Auto) 0 % (0-0); Immature Granulocytes Auto 0.03 Thou/mm3 (0.00-0.00); Lymphocytes # (Auto) 1.5 Thou/mm3 (1.0-4.8); Lymphocytes % (Auto) 17 % (10-50); Mean Corpuscular HGB Conc 29.5 g/dl (31.0-37.0); Mean Corpuscular Hemoglobin 23.6 pg (25.0-35.0); Mean Corpuscular Volume 80 fL (80-100); Monocytes # (Auto) 0.6 Thou/mm3 (0.0-0.8); Monocytes % (Auto) 7 % (0-12); Neutrophils # (Auto) 6.3 Thou/mm3 (1.8-7.7); Neutrophils % (Auto) 75 % (37-80); Nucleated Red Blood Cell % 0 /100 WBC (0); Platelet Count 221 Thou/mm3 (140-440); RDW Standard Deviation 51.7 fL (36.4-46.3); Red Blood Count 3.56 Miln/mm3 (4.00-5.20); White Blood Count 8.4 Thou/mm3 (3.6-11.0)
[2024-09-26 17:30] LABS: Hemoglobin 8.4 g/dL (12.0-16.0)
[2024-09-26 18:08] LABS: Alanine Aminotransferase 54 U/L (10-49); Albumin, Serum 3.7 gm/dL (3.5-5.0); Albumin/Globulin Ratio 1.1 (1.2-2.2); Alkaline Phosphatase 110 U/L (46-116); Anion Gap 9 (7-16); Aspartate Amino Transferase 42 U/L (0-34); BUN/Creatinine Ratio 23 Ratio (12-20); Bilirubin,Total 0.2 mg/dL (0.3-1.2); Blood Urea Nitrogen 21 mg/dL (9-23); Calcium 9.6 mg/dL (8.3-10.6); Calcium (Corrected) 9.8 mg/dL (8.5-10.1); Carbon Dioxide 26.1 mMol/L (20.0-31.0); Chloride 106 mMol/L (98-107); Creatinine (Component) 0.9 mg/dL (0.6-1.3); Estimated Creatinine Clearance 90.6 mL/min (>60); Globulin 3.4 gm/dL (2.3-3.5); Glucose 285 mg/dL (74-106); Lipase 38 U/L (12-53); Osmolality,Calculated 294 (275-295); Potassium 4.6 mMol/L (3.4-5.1); Sodium 141 mMol/L (136-145); Total Protein 7.1 gm/dL (5.7-8.2); Troponin I < 0.002 ng/mL (0.0-0.045); eGFR > 60 See Note
[2024-09-26 18:17] LABS: Collection Type, Urine Clean Catch
[2024-09-26 19:08] LABS: Bacteria,Urine 1+; Bilirubin,Urine 1+ (Negative); Blood,Urine Trace (Negative); Clarity,Urine Turbid (Clear/Hazy); Color,Urine Yellow (Lt Yel-Yel); Culture Indicated,Urine Contaminated; Glucose, Urine 3+ (Negative); Ketones,Urine Trace (Negative); Leukocyte Esterase,Urine Positive (Negative); Nitrite,Urine Negative (Negative); PH,Urine 6.5 (5.0-7.0); Protein,Urine 2+ (Neg - Trace); RBC,Urine 25 /hpf (0-3); Specific Gravity,Urine 1.048 (1.001-1.035); Squamous Epithelial Cell,Urine 24 /hpf (0-5); WBC,Urine 113 /hpf (0-5)
--- NOTE | 2024-09-26 20:44 | PD.EDABDPN ---
ED Abdominal Pain RME/HPI General Chief Complaint: Abdominal Pain Stated complaint: EPIGASTRIC PAIN FOR OVER 1 WK Time seen by provider: 09/26/24 20:26 Arrival date/time: 09/26/24 15:54 RME / HPI RME / HPI narrative: 54-year-old significant history of obesity, hypertension diabetes mellitus, came in for evaluation regarding epigastric pain. Onset of symptoms earlier today described as dull ache, severity moderate. Patient denies any vomiting denies any fever denies any other complaints abdominal surgery includes cholecystectomy in the past. Related Data Home Medications ?Medication ?Instructions ?Recorded ?Confirmed docusate sodium 250 mg capsule 250 mg PO QDAY 06/17/22 05/09/24 ferrous sulfate 325 mg (65 mg 325 mg PO TID 06/17/22 05/09/24 iron) tablet (FeroSul) fluticasone 250 mcg-salmeterol 50 1 inh inhalation BID 06/17/22 05/09/24 mcg/dose blistr powdr for inhalation (Advair Diskus) Previous Rx's ?Medication ?Instructions ?Recorded fluticasone 500 mcg-salmeterol 50 1 inh inhalation BID #60 ea 06/20/22 mcg/dose blistr powdr for inhalation (Advair Diskus) metformin 1,000 mg tablet,extended 1,000 mg PO BID #60 tabs 06/20/22 release 24hr (osmotic) albuterol sulfate 90 mcg/actuation 1 inh inhalation QID PRN shortness 06/23/22 aerosol inhaler of breath or wheezing #8.5 grams fluticasone propionate 230 2 puff inhalation BID #12 grams 06/23/22 mcg-salmeterol 21 mcg/actuation HFA inhaler (Advair HFA) famotidine 20 mg tablet (Pepcid) 20 mg PO BID #10 tabs 04/05/23 lidocaine 4 % topical gel 1 applic topical BID #30 grams 04/25/24 rivaroxaban 15 mg (42)-20 mg (9) See Rx Instructions PO .COMPLEX 04/25/24 tablets in a starter pack (Xarelto #51 tabs DVT-PE Treatment 30-Day Starter) clotrimazole 10 mg alejandro 10 mg mucous membrane TID #30 tabs 05/07/24 empagliflozin 25 mg tablet 25 mg PO QDAY #30 tabs 05/07/24 (Jardiance) fluticasone propionate 45 2 puff inhalation BID #12 grams 05/07/24 mcg-salmeterol 21 mcg/actuation HFA inhaler (Advair HFA) ipratropium 20 mcg-albuterol 100 1 puff inhalation Q6H PRN SOB or 05/07/24 mcg/actuation mist for inhalation wheezing #4 grams (Combivent Respimat) pantoprazole 40 mg tablet,delayed 40 mg PO QDAY #30 tabs 05/07/24 release semaglutide 0.25 mg or 0.5 mg (2 0.5 mg (0.736 mL) subcut QWEEK #3 05/07/24 mg/3 mL) subcutaneous pen injector mL tizanidine 2 mg capsule 2 mg PO Q8H PRN muscle spasticity 05/07/24 #30 caps hydrocortisone acetate 25 mg 25 mg ND BID #24 ea 05/12/24 rectal suppository (Hemmorex-HC) sucralfate 100 mg/mL oral 10 ml PO BID #200 mL 06/10/24 suspension (Carafate) furosemide 40 mg tablet (Lasix) 40 mg PO QAM #3 tabs 06/24/24 ketorolac 10 mg tablet 10 mg PO TID PRN pain 5 days #20 09/26/24 tabs Allergies Allergy/AdvReac Type Severity Reaction Status Date / Time lactase (From Dairy Aid) Allergy Mild Gastrointestinal Verified 09/26/24 15:58 Upset latex Allergy Mild Rash, Verified 09/26/24 15:58 Swelling Review of Systems Review of Systems Narrative Review of Systems: Review of system reviewed and within normal limits except mentioned in HPI ED Exam Narrative Physical exam: VITAL SIGNS: Reviewed. GENERAL APPEARANCE: Alert and interactive, follows commands, no acute distress, morbid obesity HEAD AND FACE: Non-traumatic. ENT: PERRL, pink conjunctivitis, eyelid no trauma, Mucous membrane moist. NECK: Supple, nontender, no nuchal rigidity. CHEST: No tenderness, no crepitus, no paradoxical movement, no retractions. LUNGS: Clear, well ventilated, symmetric, no rales, no wheezing, no ronchi, no stridor, good breath sounds bilaterally. HEART: Regular rate, regular rhythm, no murmur, no gallops. ABDOMEN: Soft, positive bowel sounds, nondistended, no guarding, upper abdominal tenderness, no rebound, right lateral wall hernia palpated. Nontender RECTAL: Deferred. GENITAL: Deferred. NEUROLOGICAL: Gross motor function intact sensory function intact, Appropriate for age. MUSCULOSKELETAL: low back nontender, full range of motion. EXTREMITIES: Nontender, full range of motion. SKIN: Color pink, dry, no rash, no lacerations, no abrasions, no contusions. LYMPHATICS: Deferred. Course Quality Measures none Orders Category Date Time Status EKG (ED ONLY) *Do not use* NOW Care 09/26/24 16:[address] abdomen pelvis wo con Stat Exams 09/26/24 16:16 Completed EKG (ED Only) Stat Exams 09/26/24 16:16 Draft CBC Stat Lab 09/26/24 17:00 Completed Comprehensive Metabolic Panel Stat Lab 09/26/24 17:00 Completed Lipase Stat Lab 09/26/24 17:00 Completed Troponin I Stat Lab 09/26/24 17:00 Completed UA, C/S IF [Urinalysis, C/S if Indicated] Stat Lab 09/26/24 17:15 Completed Vital Signs Vital signs: Vital Signs Temperature 98.2 F 09/26/24 16:08 Pulse Rate 103 H 09/26/24 16:08 Respiratory Rate 18 09/26/24 16:08 Blood Pressure 168/94 H 09/26/24 16:08 Pulse Oximetry (%) 96 09/26/24 16:08 Oxygen Delivery Method Room Air 09/26/24 16:08 Abdominal Pain MDM MDM Narrative MDM Narrative:: 54-year-old significant history of obesity, hypertension diabetes mellitus, came in for evaluation regarding epigastric pain. Onset of symptoms earlier today described as dull ache, severity moderate. Patient denies any vomiting denies any fever denies any other complaints abdominal surgery includes cholecystectomy in the past. Patient's workup came back unremarkable. Urinalysis contaminated. CT scan of the abdomen pelvis showed Significant hepatomegaly, fatty infiltration throughout the liver, primary hepatocellular disease. Right lateral abdominal wall hernia defect, 4.9 cm, containing fat and fluid Normal appendix No bowel obstruction EKG shows sinus rhythm, ventricular rate of 97 bpm, no ST segment elevation depression noted. Patient data External records reviewed:: None Clinical information provided by:: patient Social determinants that could affect healthcare access:: none Patient has the following chronic illnesses:: Hypertension diabetes morbid obesity How is presenting disease/condition affected by chronic disease/condition?: exacerbated by Evaluation data The following diagnostics were reviewed and interpreted by me:: lab results, radiology exam(s) and EKG tracing(s) Lab and/or radiology exams considered but not ordered:: None Interpretation Summary: See results in [facility] Medications / Prescriptions Medications or Prescriptions considered but not ordered:: None Medication administrations:: None Consultations Consultation(s) initiated? (list below): No Diagnosis Differential diagnosis abdominal pain: abdominal pain, small bowel obstruction and other (Abdominal hernia) Most likely diagnosis given after review of the tests above:: Abdominal hernia, abdominal pain Admission Indicated Admission indicated?: not indicated Admission Request Was there a request for admission?: No Disposition Plan Disposition Plan: Discharge Discharge Attestation Discharge Attestation: The patient was given an opportunity to ask questions and understood the discharge instructions. Discharge instructions specifically effects, indications for sooner follow up or return to the emergency department, and the expected course of current diagnosis. Patient condition: Stable Discharge Plan Plan Patient Disposition: HOME (Self Care) Disposition Comment: Stable Prescriptions/Referrals Prescriptions/Med Rec: New ketorolac 10 mg tablet 10 mg PO TID PRN (Reason: pain) 5 Days Qty: 20 0RF No Action semaglutide 0.25 mg or 0.5 mg (2 mg/3 mL) pen injector 0.5 mg subcut QWEEK Qty: 3 0RF pantoprazole 40 mg tablet,delayed release (DR/EC) 40 mg PO QDAY Qty: 30 0RF tizanidine 2 mg capsule 2 mg PO Q8H PRN (Reason: muscle spasticity) Qty: 30 0RF Jardiance 25 mg tablet 25 mg PO QDAY Qty: 30 0RF Combivent Respimat 20-100 mcg/actuation mist 1 puff inhalation Q6H PRN (Reason: SOB or wheezing) Qty: 4 0RF fluticasone propion-salmeterol [Advair HFA] 45-21 mcg/actuation HFA aerosol inhaler 2 puff inhalation BID Qty: 12 0RF clotrimazole 10 mg alejandro 10 mg mucous membrane TID Qty: 30 0RF lidocaine 4 % gel 1 applic topical BID Qty: 30 2RF Xarelto DVT-PE Treat 30d Start 15 mg (42)- 20 mg (9) tablets,dose pack See Rx Instructions .ROUTE .COMPLEX Qty: 51 0RF Rx Instructions: take one-15 mg tablet twice daily for 21 days, then one-20 mg tablet once daily; must take with meal/food hydrocortisone acetate [Hemmorex-HC] 25 mg suppository 25 mg ND BID Qty: 24 0RF ferrous sulfate [FeroSul] 325 mg (65 mg iron) tablet 325 mg PO TID Patient Comments: take 1 tablet by mouth three times a day fluticasone propion-salmeterol [Advair Diskus] 250-50 mcg/dose Blister With Device 1 inh INHALATION BID docusate sodium 250 mg Capsule 250 mg PO QDAY fluticasone propion-salmeterol [Advair Diskus] 500-50 mcg/dose blister with device 1 inh inhalation BID Qty: 60 0RF metformin 1,000 mg tablet extended release 24 hr 1,000 mg PO BID Qty: 60 0RF albuterol sulfate 90 mcg/actuation HFA aerosol inhaler 1 inh inhalation QID PRN (Reason: shortness of breath or wheezing) Qty: 8.5 0RF fluticasone propion-salmeterol [Advair HFA] 230-21 mcg/actuation HFA aerosol inhaler 2 puff inhalation BID Qty: 12 0RF famotidine [Pepcid] 20 mg tablet 20 mg PO BID Qty: 10 0RF sucralfate [Carafate] 100 mg/mL suspension 10 ml PO BID Qty: 200 0RF furosemide [Lasix] 40 mg tablet 40 mg PO QAM Qty: 3 0RF Referrals: Jarred Lopez MD [Primary Care Provider] - In 1 week Problem List Clinical Impression: Abdominal pain, Abdominal hernia Patient/Caregiver Discharge Instructions Discharge Activity: activity as tolerated Education Materials: ED Hernia (Adult) Additional Instructions: Thank you for the opportunity for serving you today. You are stable for discharged . You are advised to: Follow-up with your PCP in 1 to 2 days as your PCP to refer you to a surgeon. Regarding hernia Return to ED for worsening of symptoms Increase oral fluids Take medication as prescribed Print Language: Qatari Stand Alone Forms: [employer] Award Info., Patient Portal Info Letter PA/JOEY Supervising Physician PA/JOEY Supervising Physician: MD Frantz
[2024-09-26 21:16] VITALS: BP 135/72; PULSE 68; RESP 19; TEMP 36.6; O2SAT 98
== END 2024-09-26 21:17 | disposition home or self-care (01) ==
PROVIDERS: Nurse Practitioner Primary Care; Emergency Provider Family Medicine; PCP Family Medicine
DX: K46.9 Unspecified abdominal hernia without obstruction or gangrene (principal); E11.9 Type 2 diabetes mellitus without complications; I10 Essential (primary) hypertension
CPT/HCPCS: 36415; 74176; 80053; 81001; 83690; 84484; 85025; 93005; 99285

== ENCOUNTER 2024-11-22 16:50 | Emergency (ER) | payer MEDICAID, SELFPAY ==
[2024-11-22 16:51] VITALS: BMI 36.6
[2024-11-22 17:07] VITALS: BP 130/79; PULSE 120; RESP 18; TEMP 36.4; O2SAT 97
--- NOTE | 2024-11-22 17:14 | PD.EDRME ---
Rapid Medical Screening Exam E Arrival date/time: 11/22/24 16:50 54-year-old female with a history of type 2 diabetes, hyperlipidemia, hypertension presents to the emergency room with a chief complaint of generalized weakness, fatigue,, nausea and an elevated blood sugar reading of 500 in her glucometer. I have greeted and performed a focused initial assessment of this patient. A comprehensive ED assessment and evaluation of the patient, analysis of all test results, and completion of the medical decision making process will be conducted by additional ED providers. Chief Complaint: General Adult/Misc Complain Time Seen by Provider: 11/22/24 17:05 Vital signs: Vital Signs Temperature 97.6 F 11/22/24 17:07 Pulse Rate 120 H 11/22/24 17:07 Respiratory Rate 18 11/22/24 17:07 Blood Pressure 130/79 11/22/24 17:07 Pulse Oximetry (%) 97 11/22/24 17:07 Oxygen Delivery Method Room Air 11/22/24 17:07 Vital signs reviewed by provider: Yes
[2024-11-22 17:41] LABS: Beta Hydroxybutyrate 0.1 mmol/L (<0.6)
[2024-11-22 17:51] LABS: Basophils % (Auto) 0 % (0-2.5); Eosinophils % (Auto) 1 % (0-10); Hematocrit 30.4 % (36.0-46.0); Immature Granulocytes % (Auto) 1 % (0-0); Immature Granulocytes Auto 0.03 Thou/mm3 (0.00-0.00); Lymphocytes # (Auto) 1.6 Thou/mm3 (1.0-4.8); Lymphocytes % (Auto) 25 % (10-50); Mean Corpuscular HGB Conc 29.6 g/dl (31.0-37.0); Mean Corpuscular Hemoglobin 22.6 pg (25.0-35.0); Mean Corpuscular Volume 76 fL (80-100); Monocytes # (Auto) 0.5 Thou/mm3 (0.0-0.8); Monocytes % (Auto) 8 % (0-12); Neutrophils # (Auto) 4.1 Thou/mm3 (1.8-7.7); Neutrophils % (Auto) 65 % (37-80); Nucleated Red Blood Cell % 0 /100 WBC (0); Platelet Count 280 Thou/mm3 (140-440); RDW Standard Deviation 48.8 fL (36.4-46.3); Red Blood Count 3.99 Miln/mm3 (4.00-5.20); White Blood Count 6.3 Thou/mm3 (3.6-11.0)
[2024-11-22 18:09] LABS: Alanine Aminotransferase 42 U/L (10-49); Albumin, Serum 3.7 gm/dL (3.5-5.0); Albumin/Globulin Ratio 1.2 (1.2-2.2); Alkaline Phosphatase 123 U/L (46-116); Anion Gap 14 (7-16); Aspartate Amino Transferase 50 U/L (0-34); BUN/Creatinine Ratio 5 Ratio (12-20); Bilirubin,Total 0.7 mg/dL (0.3-1.2); Blood Urea Nitrogen 5 mg/dL (9-23); Calcium 8.8 mg/dL (8.3-10.6); Carbon Dioxide 21.7 mMol/L (20.0-31.0); Chloride 100 mMol/L (98-107); Creatinine (Component) 1.1 mg/dL (0.6-1.3); Estimated Creatinine Clearance 73.1 mL/min (>60); Globulin 3.2 gm/dL (2.3-3.5); Lipase 50 U/L (12-53); Osmolality,Calculated 297 (275-295); Potassium 3.5 mMol/L (3.4-5.1); Sodium 136 mMol/L (136-145); Total Protein 6.9 gm/dL (5.7-8.2); eGFR 59 See Note
[2024-11-22 18:19] LABS: Glucose 611 mg/dL (74-106)
[2024-11-22 18:25] LABS: Collection Type, Urine Clean Catch
[2024-11-22 19:00] VITALS: BP 124/81; PULSE 72; RESP 18; TEMP 36.9; O2SAT 95
--- NOTE | 2024-11-22 19:05 | XR_ITS ---
Examination: CT abdomen with intravenous contrast CT pelvis with intravenous contrast 2-D coronal reconstructions 2-D sagittal reconstructions Date and time of exam:November 22, 2024, 2006 hours Comparison September 26, 2024 INDICATIONS: Onset of abdominal pain today. CTDI: vol (mGy) 23.8 DLP: (mGycm) 667 Technique: Multiple axial sections of the abdomen and pelvis have been obtained. 64 slice high-resolution scanner used. 3 mm axial sections have been obtained, post intravenous injection of 60 cc Isovue 370 2-D sagittal, coronal reconstructions obtained. Low dose protocols were performed. One or more of the following dose reduction techniques were used; automated exposure control, adjustment of the mA and/or KV according to patient size, use of iterative reconstruction technique. Findings: No focal liver or splenic lesions. Absent gallbladder No pancreatic mass Moderate bilateral renal parenchymal scar formation, no hydronephrosis Right lateral abdominal wall 5 cm fat-containing hernia defect No bowel obstruction No pericecal inflammatory change No diverticulitis Anteverted uterus No bladder mass IMPRESSION: Moderate bilateral renal parenchymal scar formation, no hydronephrosis Large right lateral abdominal wall hernia defect containing fat and fluid, no bowel present in this hernia defect, no bowel obstruction
--- NOTE | 2024-11-22 19:05 | EKG_ITS ---
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
--- NOTE | 2024-11-22 19:08 | PD.EDADULT ---
ED General RME/HPI General Chief complaint: General Adult/Misc Complain Stated complaint: WEAKNESS, BLOOD SUGAR OVER 500, FEELS NAUSEA Time Seen by Provider: 11/22/24 17:05 Arrival date/time: 11/22/24 16:50 RME / HPI RME / HPI narrative: 54-year-old female with a history of type 2 diabetes, hyperlipidemia, hypertension presents to the emergency room with a chief complaint of generalized weakness, fatigue,, nausea and an elevated blood sugar reading of 500 in her glucometer. Is been ongoing for the last several days. Also complaining of diffuse abdominal pain for several days severity moderate. Yesterday went to PCP and her sugar was noted to be above 500 and was advised to continue taking her diabetic medication. Patient denies any other complaints. Related Data Home Medications ?Medication ?Instructions ?Recorded ?Confirmed docusate sodium 250 mg capsule 250 mg PO QDAY 06/17/22 05/09/24 ferrous sulfate 325 mg (65 mg 325 mg PO TID 06/17/22 05/09/24 iron) tablet (FeroSul) fluticasone 250 mcg-salmeterol 50 1 inh inhalation BID 06/17/22 05/09/24 mcg/dose blistr powdr for inhalation (Advair Diskus) Previous Rx's ?Medication ?Instructions ?Recorded fluticasone 500 mcg-salmeterol 50 1 inh inhalation BID #60 ea 06/20/22 mcg/dose blistr powdr for inhalation (Advair Diskus) metformin 1,000 mg tablet,extended 1,000 mg PO BID #60 tabs 06/20/22 release 24hr (osmotic) albuterol sulfate 90 mcg/actuation 1 inh inhalation QID PRN shortness 06/23/22 aerosol inhaler of breath or wheezing #8.5 grams fluticasone propionate 230 2 puff inhalation BID #12 grams 06/23/22 mcg-salmeterol 21 mcg/actuation HFA inhaler (Advair HFA) famotidine 20 mg tablet (Pepcid) 20 mg PO BID #10 tabs 04/05/23 lidocaine 4 % topical gel 1 applic topical BID #30 grams 04/25/24 rivaroxaban 15 mg (42)-20 mg (9) See Rx Instructions PO .COMPLEX 04/25/24 tablets in a starter pack (Xarelto #51 tabs DVT-PE Treatment 30-Day Starter) clotrimazole 10 mg alejandro 10 mg mucous membrane TID #30 tabs 05/07/24 empagliflozin 25 mg tablet 25 mg PO QDAY #30 tabs 05/07/24 (Jardiance) fluticasone propionate 45 2 puff inhalation BID #12 grams 05/07/24 mcg-salmeterol 21 mcg/actuation HFA inhaler (Advair HFA) ipratropium 20 mcg-albuterol 100 1 puff inhalation Q6H PRN SOB or 05/07/24 mcg/actuation mist for inhalation wheezing #4 grams (Combivent Respimat) pantoprazole 40 mg tablet,delayed 40 mg PO QDAY #30 tabs 05/07/24 release semaglutide 0.25 mg or 0.5 mg (2 0.5 mg (0.736 mL) subcut QWEEK #3 05/07/24 mg/3 mL) subcutaneous pen injector mL tizanidine 2 mg capsule 2 mg PO Q8H PRN muscle spasticity 05/07/24 #30 caps hydrocortisone acetate 25 mg 25 mg [place] BID #24 ea 05/12/24 rectal suppository (Hemmorex-HC) sucralfate 100 mg/mL oral 10 ml PO BID #200 mL 06/10/24 suspension (Carafate) furosemide 40 mg tablet (Lasix) 40 mg PO QAM #3 tabs 06/24/24 Allergies Allergy/AdvReac Type Severity Reaction Status Date / Time lactase (From Dairy Aid) Allergy Mild Gastrointestinal Verified 11/22/24 16:54 Upset latex Allergy Mild Rash, Verified 11/22/24 16:54 Swelling Review of Systems Review of Systems Narrative Review of Systems: Review of system reviewed and within normal limits except mentioned in HPI ED Exam Narrative Physical exam: VITAL SIGNS: Reviewed. GENERAL APPEARANCE: Alert and interactive, follows commands, no acute distress, HEAD AND FACE: Non-traumatic. ENT: PERRL, pink conjunctivitis, eyelid no trauma, Mucous membrane moist. NECK: Supple, nontender, no nuchal rigidity. CHEST: No tenderness, no crepitus, no paradoxical movement, no retractions. LUNGS: Clear, well ventilated, symmetric, no rales, no wheezing, no ronchi, no stridor, good breath sounds bilaterally. HEART: Regular rate, regular rhythm, no murmur, no gallops. ABDOMEN: Soft, positive bowel sounds, nondistended, no guarding, diffuse tenderness no rebound, no masses, RECTAL: Deferred. GENITAL: Deferred. NEUROLOGICAL: Gross motor function intact sensory function intact, Appropriate for age. MUSCULOSKELETAL: low back nontender, full range of motion. EXTREMITIES: Nontender, full range of motion. SKIN: Color pink, dry, no rash, no lacerations, no abrasions, no contusions. LYMPHATICS: Deferred. Course Quality Measures none Orders Category Date Time Status CT Screening NOW Care 11/22/24 19:06 Active EKG (ED ONLY) *Do not use* NOW Care 11/22/24 19:05 Completed Fingerstick [Bedside Blood Glucose] NOW Care 11/22/24 17:[address] abdomen pelvis w con Stat Exams 11/22/24 19:05 Completed EKG (ED Only) Stat Exams 11/22/24 19:05 Draft BNP [B-Type Natriuretic Peptide] Stat Lab 11/22/24 17:26 Completed Beta Hydroxybutyrate Stat Lab 11/22/24 17:26 Completed CBC Stat Lab 11/22/24 17:26 Completed CMP [Comprehensive Metabolic Panel] Stat Lab 11/22/24 17:26 Completed Lipase Stat Lab 11/22/24 17:26 Completed UA [Urinalysis] Stat Lab 11/22/24 18:16 Completed Urine Culture Stat Lab 11/22/24 18:16 Received Insulin Regular Med 11/22/24 19:07 Discontinued 10 unit IV X1 ONE Potassium Chloride [K-Dur] Med 11/22/24 19:07 Discontinued 40 meq PO X1 ONE Ringers Lactated 1000 ml [Lactated Ringers] 1,000 ml Med 11/22/24 19:07 Discontinued IV 999 mls/hr Vital Signs Vital signs: Vital Signs Temperature 97.6 F 11/22/24 17:07 Pulse Rate 120 H 11/22/24 17:07 Respiratory Rate 18 11/22/24 17:07 Blood Pressure 130/79 11/22/24 17:07 Pulse Oximetry (%) 97 11/22/24 17:07 Oxygen Delivery Method Room Air 11/22/24 17:07 Discharge Plan Plan Patient Disposition: HOME (Self Care) Discharge Disposition comment: stable Prescriptions/Referrals Prescriptions/Med Rec: No Action semaglutide 0.25 mg or 0.5 mg (2 mg/3 mL) pen injector 0.5 mg subcut QWEEK Qty: 3 0RF pantoprazole 40 mg tablet,delayed release (DR/EC) 40 mg PO QDAY Qty: 30 0RF tizanidine 2 mg capsule 2 mg PO Q8H PRN (Reason: muscle spasticity) Qty: 30 0RF Jardiance 25 mg tablet 25 mg PO QDAY Qty: 30 0RF Combivent Respimat 20-100 mcg/actuation mist 1 puff inhalation Q6H PRN (Reason: SOB or wheezing) Qty: 4 0RF fluticasone propion-salmeterol [Advair HFA] 45-21 mcg/actuation HFA aerosol inhaler 2 puff inhalation BID Qty: 12 0RF clotrimazole 10 mg alejandro 10 mg mucous membrane TID Qty: 30 0RF lidocaine 4 % gel 1 applic topical BID Qty: 30 2RF Xarelto DVT-PE Treat 30d Start 15 mg (42)- 20 mg (9) tablets,dose pack See Rx Instructions .ROUTE .COMPLEX Qty: 51 0RF Rx Instructions: take one-15 mg tablet twice daily for 21 days, then one-20 mg tablet once daily; must take with meal/food hydrocortisone acetate [Hemmorex-HC] 25 mg suppository 25 mg [place] BID Qty: 24 0RF ferrous sulfate [FeroSul] 325 mg (65 mg iron) tablet 325 mg PO TID Patient Comments: take 1 tablet by mouth three times a day fluticasone propion-salmeterol [Advair Diskus] 250-50 mcg/dose Blister With Device 1 inh INHALATION BID docusate sodium 250 mg Capsule 250 mg PO QDAY fluticasone propion-salmeterol [Advair Diskus] 500-50 mcg/dose blister with device 1 inh inhalation BID Qty: 60 0RF metformin 1,000 mg tablet extended release 24 hr 1,000 mg PO BID Qty: 60 0RF albuterol sulfate 90 mcg/actuation HFA aerosol inhaler 1 inh inhalation QID PRN (Reason: shortness of breath or wheezing) Qty: 8.5 0RF fluticasone propion-salmeterol [Advair HFA] 230-21 mcg/actuation HFA aerosol inhaler 2 puff inhalation BID Qty: 12 0RF famotidine [Pepcid] 20 mg tablet 20 mg PO BID Qty: 10 0RF sucralfate [Carafate] 100 mg/mL suspension 10 ml PO BID Qty: 200 0RF furosemide [Lasix] 40 mg tablet 40 mg PO QAM Qty: 3 0RF Referrals: Jarred Lopez MD [Primary Care Provider] - In 1 week Problem List Clinical Impression: Abdominal pain, Hyperglycemia, Abdominal wall hernia Patient/Caregiver Discharge Instructions Discharge Activity: activity as tolerated Education Materials: High Blood Sugar (Hyperglycemia) Additional Instructions: Thank you for the opportunity for serving you today. You are stable for discharged . You are advised to: Follow-up with your PCP in 1 to 2 days as your PCP to refer you to a surgeon regarding your abdominal hernia Return to ED for worsening of symptoms Increase oral fluids Please refrain from eating carbohydrate Print Language: Syriac Stand Alone Forms: [employer] Award Info., Patient Portal Info Letter PA/JOEY Supervising Physician PA/JOEY Supervising Physician: MD Jessica MDM Narrative MDM hospital course (for use when minimal MDM required): 54-year-old female with a history of type 2 diabetes, hyperlipidemia, hypertension presents to the emergency room with a chief complaint of generalized weakness, fatigue,, nausea and an elevated blood sugar reading of 500 in her glucometer. Is been ongoing for the last several days. Also complaining of diffuse abdominal pain for several days severity moderate. Yesterday went to PCP and her sugar was noted to be above 500 and was advised to continue taking her diabetic medication. Patient denies any other complaints. Patient's workup today all came back significant for patient blood sugar was on the higher side today , I advised the patient to monitor his blood sugar and write it down three times a day for 1 to 2 weeks and asked the PCP to look at that. At this time patient benefits from close follow-up with PCP regarding blood sugar problem also of 611 with no sign of diabetic acidosis. Acetone is negative. Urinalysis no UTI. CT scan of the abdomen pelvis showed Moderate bilateral renal parenchymal scar formation, no hydronephrosis Large right lateral abdominal wall hernia defect containing fat and fluid, no bowel present in this hernia defect, no bowel obstruction Blood sugar was noted to be 334 after patient received 10 units of regular insulin and IV fluids. Patient is tolerating p.o. fluids no vomiting noted in the ED Labs Lab(s) Interpretation(s): EKG as interpreted by me showed sinus tachycardia, ventricular rate of 117 bpm, no ST segment elevation or depression noted. Medication Administration(s) Medication Administration History Discontinued Medications Lactated Ringer's (Lactated Ringers) 1,000 mls @ 999 mls/hr IV .Q1H1M ONE Stop: 11/22/24 20:07 Last Infusion: 11/22/24 21:54 Dose: Infused Documented By: Admin: 11/22/24 19:37 Dose: 999 mls/hr Documented By: KINGSLEY Insulin Human Regular (Insulin Hum Regular 1 Unit/0.01 Ml (Per Unit)) 10 unit IV X1 ONE Stop: 11/22/24 19:08 Last Admin: 11/22/24 19:36 Dose: 10 unit Documented By: KINGSLEY Co-signed By: Comments: injected in abdomen subcu Potassium Chloride (Potassium Chloride 20 Meq Tabcr) 40 meq PO X1 ONE Stop: 11/22/24 19:08 Last Admin: 11/22/24 19:35 Dose: 40 meq Documented By: KINGSLEY Diagnosis Differential Diagnosis ED Complaint MDM: Hyperglycemia, DKA, abdominal pain Diagnoses ruled out and/or further discussions: Hyperglycemia, abdominal wall hernia
[2024-11-22 19:16] LABS: Bilirubin,Urine Negative (Negative); Blood,Urine Negative (Negative); Clarity,Urine Clear (Clear/Hazy); Color,Urine Lt-Yellow (Lt Yel-Yel); Glucose, Urine 4+ (Negative); Ketones,Urine Negative (Negative); Leukocyte Esterase,Urine Negative (Negative); Nitrite,Urine Negative (Negative); PH,Urine 6.5 (5.0-7.0); Protein,Urine Negative (Neg - Trace); RBC,Urine < 1 /hpf (0-3); Specific Gravity,Urine 1.039 (1.001-1.035); Squamous Epithelial Cell,Urine 2 /hpf (0-5); Urobilinogen,Urine Negative mg/dL (0.0-1.0); WBC,Urine 2 /hpf (0-5)
[2024-11-22] MEDS: POTASSIUM CHLORIDE 20 mEq TABCR 40 MEQ PO (19:35)
[2024-11-22] MEDS: INSULIN HUM REGULAR 1 UNIT/0.01 ML (PER UNIT) 10 UNIT IV (19:36)
[2024-11-22] MEDS: RINGERS LACTATED 1000 ML 1,000 ML 999 ML IV (19:37)
[2024-11-22 19:39] LABS: B-Type Natriuretic Peptide < 20 pg/mL (0-100)
[2024-11-22 22:42] VITALS: BP 123/78; PULSE 98; RESP 20; TEMP 36.7; O2SAT 97
== END 2024-11-22 22:42 | disposition home or self-care (01) ==
PROVIDERS: Nurse Practitioner Family; Emergency Provider Emergency Medicine; PCP Family Medicine
DX: E11.65 Type 2 diabetes mellitus with hyperglycemia (principal); E78.5 Hyperlipidemia, unspecified; I10 Essential (primary) hypertension; K43.9 Ventral hernia without obstruction or gangrene
CPT/HCPCS: 36415; 74177; 80053; 81001; 82010; 83690; 83880; 84484; 85025; 87086; 93005; 96360; 96361; 99285; A4649; J1815; J7120; Q9967; A9270

== ENCOUNTER 2025-03-18 19:31 | Emergency (ER) | payer MEDICAID, SELFPAY ==
[2025-03-18 19:33] VITALS: BMI 56.6
--- NOTE | 2025-03-18 19:37 | PD.EDCHEST ---
ED Chest Pain RME/HPI General Chief Complaint: Chest Pain Stated Complaint: CHEST PAIN WEAKNESS AND SYNCOPE Time Seen by Provider: 03/18/25 19:56 Arrival date/time: 03/18/25 19:31 RME / HPI RME / HPI narrative: See MDM for Dr. Lopez's HPI documentation. Related Data Home Medications ?Medication ?Instructions ?Recorded ?Confirmed docusate sodium 250 mg capsule 250 mg PO QDAY 06/17/22 05/09/24 ferrous sulfate 325 mg (65 mg 325 mg PO TID 06/17/22 05/09/24 iron) tablet (FeroSul) fluticasone 250 mcg-salmeterol 50 1 inh inhalation BID 06/17/22 05/09/24 mcg/dose blistr powdr for inhalation (Advair Diskus) Previous Rx's ?Medication ?Instructions ?Recorded fluticasone 500 mcg-salmeterol 50 1 inh inhalation BID #60 ea 06/20/22 mcg/dose blistr powdr for inhalation (Advair Diskus) metformin 1,000 mg tablet,extended 1,000 mg PO BID #60 tabs 06/20/22 release 24hr (osmotic) albuterol sulfate 90 mcg/actuation 1 inh inhalation QID PRN shortness 06/23/22 aerosol inhaler of breath or wheezing #8.5 grams fluticasone propionate 230 2 puff inhalation BID #12 grams 06/23/22 mcg-salmeterol 21 mcg/actuation HFA inhaler (Advair HFA) famotidine 20 mg tablet (Pepcid) 20 mg PO BID #10 tabs 04/05/23 lidocaine 4 % topical gel 1 applic topical BID #30 grams 04/25/24 rivaroxaban 15 mg (42)-20 mg (9) See Rx Instructions PO .COMPLEX 04/25/24 tablets in a starter pack (Xarelto #51 tabs DVT-PE Treatment 30-Day Starter) clotrimazole 10 mg alejandro 10 mg mucous membrane TID #30 tabs 05/07/24 empagliflozin 25 mg tablet 25 mg PO QDAY #30 tabs 05/07/24 (Jardiance) fluticasone propionate 45 2 puff inhalation BID #12 grams 05/07/24 mcg-salmeterol 21 mcg/actuation HFA inhaler (Advair HFA) ipratropium 20 mcg-albuterol 100 1 puff inhalation Q6H PRN SOB or 05/07/24 mcg/actuation mist for inhalation wheezing #4 grams (Combivent Respimat) pantoprazole 40 mg tablet,delayed 40 mg PO QDAY #30 tabs 05/07/24 release semaglutide 0.25 mg or 0.5 mg (2 0.5 mg (0.736 mL) subcut QWEEK #3 05/07/24 mg/3 mL) subcutaneous pen injector mL tizanidine 2 mg capsule 2 mg PO Q8H PRN muscle spasticity 05/07/24 #30 caps hydrocortisone acetate 25 mg 25 mg OH BID #24 ea 05/12/24 rectal suppository (Hemmorex-HC) sucralfate 100 mg/mL oral 10 ml PO BID #200 mL 06/10/24 suspension (Carafate) furosemide 40 mg tablet (Lasix) 40 mg PO QAM #3 tabs 06/24/24 levofloxacin 500 mg tablet 500 mg PO QDAY 5 days #5 tabs 03/18/25 magnesium oxide 400 mg PO BID #60 tabs 03/18/25 ondansetron 4 mg disintegrating 4 mg PO TID PRN nausea and 03/18/25 tablet vomiting 30 days #10 tabs Allergies Allergy/AdvReac Type Severity Reaction Status Date / Time lactase (From Dairy Aid) Allergy Mild Gastrointestinal Verified 03/18/25 19:44 Upset latex Allergy Mild Rash, Verified 03/18/25 19:44 Swelling Review of Systems Review of Systems Systems Reviewed: All systems reviewed, normal except as documented Past Medical History Past Medical History NEUROLOGIC: Negative Neurological Disorders or Seizures CARDIAC: Positive Cardiac Disorders, Congestive Heart Failure and Hypertension RESPIRATORY: Positive Chronic Obstructive Pulmonary Disease (COPD), Asthma, Bronchitis, Pneumonia and Sleep Apnea GASTROINTESTINAL: Positive Gastrointestinal Disorders, Gall Bladder Disease, Gastrointestinal Bleed, Ulcer and Obesity GENITOURINARY: Negative Genitourinary Disorders or Renal Disease REPRODUCTIVE: Positive Previous Pregnancies MUSCULOSKELETAL: Positive Arthritis; Negative Musculoskeletal Disorders ENDOCRINE: Positive Endocrine Disorders and Diabetes Mellitus Type 2; Negative Diabetes Mellitus Type 1 HEMATOLOGIC: Positive Anemia; Negative Sickle Cell Disease PSYCHO/SOCIAL: Positive Depression and Anxiety OTHER HISTORY: Positive Blood Transfusions; Negative Autoimmune Disease, Blood Transfusion Reaction, Anesthesia Reactions or Cancer Surgical History SURGICAL: Positive Tubal Ligation and Section Social History SMOKING STATUS: Never smoker SUBSTANCE USE: does not use ED Exam Narrative Physical exam: See [facility] for Dr. Lopez's physical exam documentation. Course Course Course Narrative: CXR is ordered for determining the etiology of chest pain. Quality Measures none Orders Category Date Time Status Bedside COVID-19 Antigen Test NOW Care 03/18/25 19:38 Completed Bedside Influenza A&B Antigen Test NOW Care 03/18/25 19:[address] Screening NOW Care 03/18/25 19:41 Completed EKG (ED ONLY) *Do not use* NOW Care 03/18/25 19:40 Completed Glucose [Bedside Blood Glucose] NOW Care 03/18/25 23:30 Completed Orthostatic Vitals NOW Care 03/18/25 19:39 Completed Saline [Insert IV] NOW Care 03/18/25 19:39 Completed Straight [In and Out Catheter] X1 Care 03/18/25 19:[address] cervical spine wo con Stat Exams 03/18/25 19:[address] chest abdomen pelvis wo Stat Exams 03/18/25 20:[address] head/brain wo con Stat Exams 03/18/25 19:40 Completed EKG (ED Only) Stat Exams 03/18/25 19:40 Draft XR chest 1V portable Stat Exams 03/18/25 19:40 Completed Alcohol, Blood Medical Stat Lab 03/18/25 19:52 Completed BNP [B-Type Natriuretic Peptide] Stat Lab 03/18/25 19:52 Completed Beta Hydroxybutyrate Stat Lab 03/18/25 19:52 Completed Bilirubin,Direct Stat Lab 03/18/25 19:52 Completed Blood Culture (Lab) Stat Lab 03/18/25 19:52 Received CBC Stat Lab 03/18/25 19:52 Completed CMP [Comprehensive Metabolic Panel] Stat Lab 03/18/25 19:52 Completed CRP [C-Reactive Protein] Stat Lab 03/18/25 19:52 Completed D-Dimer Stat Lab 03/18/25 19:52 Completed Drug Screen,Urine Stat Lab 03/18/25 20:56 Completed ESR [Sed Rate (ESR)] Stat Lab 03/18/25 19:52 Completed Lactate (Lactic Acid) Stat Lab 03/18/25 19:52 Completed Lactic Acid, 3 HR Stat Lab 03/18/25 23:42 Completed Lipase Stat Lab 03/18/25 19:52 Completed Magnesium Stat Lab 03/18/25 19:52 Completed Procalcitonin Stat Lab 03/18/25 19:52 Completed TSH [Thyroid Stimulating Hormone] Stat Lab 03/18/25 19:52 Completed Troponin I Stat Lab 03/18/25 19:52 Completed UA, C/S IF [Urinalysis, C/S if Indicated] Stat Lab 03/18/25 20:56 Completed Diazepam Inj [Valium Inj] Med 03/18/25 21:27 Discontinued 7.5 mg IVP X1 ONE Insulin Regular Med 03/18/25 23:38 Discontinued 8 unit SC X1 ONE Magnesium Sulfate 2 GM Ivpb [Magnesium Sulfate Ivpb] Med 03/18/25 20:50 Discontinued 2 gm in 50 ml IV X1 Ondansetron Inj [Zofran Inj] Med 03/18/25 19:39 Discontinued 4 mg IVP X1 ONE Sodium Chloride 0.9% 1000 ml [Ns] 1,000 ml Med 03/18/25 19:39 Discontinued IV 999 mls/hr Sodium Chloride 0.9% 1000 ml [Ns] 1,000 ml Med 03/18/25 21:20 Discontinued IV 999 mls/hr cefTRIAXone/D5w 1gm IV premix [Rocephin/D5w 1gm IV Med 03/18/25 21:20 Discontinued premix] 1 gm in 50 ml IV X1 Vital Signs Vital signs: Vital Signs Temperature 98.6 F 03/18/25 19:39 Pulse Rate 112 H 03/18/25 19:39 Respiratory Rate 18 03/18/25 19:39 Blood Pressure 120/81 03/18/25 19:39 Pulse Oximetry (%) 95 03/18/25 19:39 Oxygen Delivery Method Room Air 03/18/25 19:39 Chest Pain MDM Narrative MDM Narrative:: This section includes all my notes and documentations, including HPI, PE, and ED course. Eric Lopez MD HPI: 55yo female here with multiple concerns. 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 She reports headache, dizziness, chest pain, shortness of breath, abdominal pain, vomiting, and generalized weakness. No other complaints. ROS: All negative except as documented in HPI. Physical Exam: General: Alert and oriented. Appearance of malaise noted. Appears anxious. Eyes: Conjunctivae and lids clear. PERRL. EOMI. ENT: No nasal congestion. Neck: Supple. No carotid bruit. No JVD. Heart: Sinus tachycardia noted. Lungs: No respiratory distress. Good air movement. No severe rhonchi, wheezing, rales. Abdomen: Soft with diffuse tenderness, difficult to localize. Normal bowel sounds. No distension. No rebound or guarding. Back: No CVA tenderness. Skin: Warm and dry. Neuro: Alert and oriented X 3. Cranial nerves II to XII grossly normal. No peripheral motor deficits. I reviewed all diagnostic test results. My interpretation of the EKG is sinus tachycardia with nonspecific ST-T changes. My interpretation of the chest x-ray is no acute findings. My review of the CT head report is NAD. My review of the CT cervical spine report is NAD. My review of the CT chest abdomen pelvis report is NAD. Blood tests remarkable for Glucose 295, Lactic Acid 2.2, Mg 1.2, CRP 3.0. UA remarkable for positive nitrites, positive leukocyte esterase, 29 RBCs, 74 WBCs, 1+ bacteria. UDS negative. At this point, diagnoses include: UTI (urinary tract infection) Hypomagnesemia Dehydration Hyperglycemia. Treatment here included: Valium IV fluid Magnesium Rocephin Zofran Insulin Significant improvement noted. Recommend outpatient management. Based on my best medical judgment, made decision no further evaluation or treatment indicated at this time. Patient understands and agrees to the discharge instructions customized and printed, see below. Discharge Instructions from Dr. Lopez printed for you: 1. After extensive evaluation, there is no life-threatening condition. Such as stroke or heart attack. 2. But your diagnoses include urinary tract infection and low magnesium level and dehydration. 3. Take Levaquin for urinary tract infection. 4. For good hydration, increase oral fluid and maintain clear urine. If dark or yellow, increase oral fluid. Zofran for nausea/vomiting. 5. Take magnesium pills as prescribed. Increase food rich in magnesium. Such as green and leafy vegetables and peanuts and cashews and almonds. 6. See a private doctor on 03/20/2025 for recheck and further care. Ask to review all test results and official radiology reports, to make sure you receive all necessary follow-ups and monitoring, including repeat magnesium level. Ask for help until you are completely better. 7. Seek immediate medical care with worsening or with any concerns. Eric Lopez MD Patient data External records reviewed:: [facility] previous records (Per chart review, patient was seen here on 11/22/24 for abdominal pain.) Clinical information provided by:: patient Social determinants that could affect healthcare access:: none Patient has the following chronic illnesses:: DM, CHF, HTN How is presenting disease/condition affected by chronic disease/condition?: uneffected by Evaluation data The following diagnostics were reviewed and interpreted by me:: lab results, radiology exam(s) and EKG tracing(s) (My interpretation of the EKG is: Sinus tachycardia (105 bpm) with nonspecific ST-T changes. Eric Lopez MD) Lab and/or radiology exams considered but not ordered:: none Interpretation Summary: I reviewed all diagnostic test results. My interpretation of the EKG is sinus tachycardia with nonspecific ST-T changes. My interpretation of the chest x-ray is basilar bronchitis pattern. My review of the CT head report is NAD. My review of the CT cervical spine report is NAD. My review of the CT chest abdomen pelvis report is NAD. Blood tests remarkable for Glucose 295, Lactic Acid 2.2, Mg 1.2, CRP 3.0. UA remarkable for positive nitrites, positive leukocyte esterase, 29 RBCs, 74 WBCs, 1+ bacteria. UDS negative. Medications / Prescriptions Medications or Prescriptions considered but not ordered:: none Medication administrations:: Medication Administration History Discontinued Medications Diazepam (Diazepam Inj 5 Mg/Ml Vial 2 Ml) 7.5 mg IVP X1 ONE Stop: 03/18/25 21:28 Last Admin: 03/18/25 21:35 Dose: 7.5 mg Documented By: CARLOS ENRIQUE Sodium Chloride (Ns) 1,000 mls @ 999 mls/hr IV .Q1H1M ONE Stop: 03/18/25 20:39 Last Infusion: 03/18/25 21:30 Dose: Infused Documented By: CARLOS ENRIQUE Admin: 03/18/25 20:24 Dose: 999 mls/hr Documented By: CARLOS ENRIQUE Magnesium Sulfate (Magnesium Sulfate Ivpb) 2 gm in 50 mls @ 25 mls/hr IV X1 ONE Stop: 03/18/25 22:49 Last Infusion: 03/19/25 00:09 Dose: Infused Documented By: CARLOS ENRIQUE Infusion: 03/18/25 23:21 Dose: 25 mls/hr Documented By: CARLOS ENRIQUE Infusion: 03/18/25 22:26 Dose: 0 mls/hr Documented By: CARLOS ENRIQUE Admin: 03/18/25 21:13 Dose: 25 mls/hr Documented By: CARLOS ENRIQUE Ceftriaxone Sodium/Dextrose (Rocephin/D5w 1gm Iv Premix) 1 gm in 50 mls @ 100 mls/hr IV X1 ONE Stop: 03/18/25 21:49 Last Infusion: 03/18/25 22:57 Dose: Infused Documented By: CARLOS ENRIQUE Admin: 03/18/25 22:27 Dose: 100 mls/hr Documented By: CARLOS ENRIQUE Sodium Chloride (Ns) 1,000 mls @ 999 mls/hr IV .Q1H1M ONE Stop: 03/18/25 22:20 Last Infusion: 03/18/25 23:40 Dose: Infused Documented By: CARLOS ENRIQUE Admin: 03/18/25 22:29 Dose: 999 mls/hr Documented By: CARLOS ENRIQUE Insulin Human Regular (Insulin Hum Regular 1 Unit/0.01 Ml (Per Unit)) 8 unit SC X1 ONE Stop: 03/18/25 23:39 Last Admin: 03/19/25 00:02 Dose: 8 unit Documented By: CARLOS ENRIQUE Co-signed By: LIANNA Ondansetron HCl (Ondansetron Inj 2 Mg/Ml Inj 2 Ml) 4 mg IVP X1 ONE; Protocol Stop: 03/18/25 19:40 Last Admin: 03/18/25 20:25 Dose: 4 mg Documented By: CARLOS ENRIQUE Valium, IV fluid, Magnesium, Rocephin, Zofran, Insulin Consultations Consultation(s) initiated? (list below): No Diagnosis Chest Pain Differential Diagnosis: pneumothorax, stable angina, unstable angina pectoris, atypical chest pain, st elevation myocardial infarction, costochondritis, chest pain, biliary colic and other (CVA, brain tumor, dehydration, electrolyte abnormalities, UTI, pneumonia, sepsis) Most likely diagnosis given after review of the tests above:: UTI (urinary tract infection), Hypomagnesemia, Dehydration, hyperglycemia Admission Indicated Admission indicated?: not indicated Explain why admission is indicated or not indicated:: With significant improvement and no condition needing emergent intervention, there was no indication for admission. Admission Request Was there a request for admission?: No Disposition Plan Disposition Plan: Discharge Discharge Attestation Discharge Attestation: The patient and all family members were given an opportunity to ask questions and understood the discharge instructions. Discharge instructions specifically effects, indications for sooner follow up or return to the emergency department, and the expected course of current diagnosis. Patient condition: Stable Discharge Plan Plan Patient Disposition: HOME (Self Care) Prescriptions/Referrals Prescriptions/Med Rec: New levofloxacin 500 mg tablet 500 mg PO QDAY 5 Days Qty: 5 0RF ondansetron 4 mg tablet,disintegrating 4 mg PO TID PRN (Reason: nausea and vomiting) 30 Days Qty: 10 0RF magnesium oxide 400 mg magnesium tablet 400 mg PO BID Qty: 60 0RF No Action semaglutide 0.25 mg or 0.5 mg (2 mg/3 mL) pen injector 0.5 mg subcut QWEEK Qty: 3 0RF pantoprazole 40 mg tablet,delayed release (DR/EC) 40 mg PO QDAY Qty: 30 0RF tizanidine 2 mg capsule 2 mg PO Q8H PRN (Reason: muscle spasticity) Qty: 30 0RF Jardiance 25 mg tablet 25 mg PO QDAY Qty: 30 0RF Combivent Respimat 20-100 mcg/actuation mist 1 puff inhalation Q6H PRN (Reason: SOB or wheezing) Qty: 4 0RF fluticasone propion-salmeterol [Advair HFA] 45-21 mcg/actuation HFA aerosol inhaler 2 puff inhalation BID Qty: 12 0RF clotrimazole 10 mg alejandro 10 mg mucous membrane TID Qty: 30 0RF lidocaine 4 % gel 1 applic topical BID Qty: 30 2RF Xarelto DVT-PE Treat 30d Start 15 mg (42)- 20 mg (9) tablets,dose pack See Rx Instructions .ROUTE .COMPLEX Qty: 51 0RF Rx Instructions: take one-15 mg tablet twice daily for 21 days, then one-20 mg tablet once daily; must take with meal/food hydrocortisone acetate [Hemmorex-HC] 25 mg suppository 25 mg OH BID Qty: 24 0RF ferrous sulfate [FeroSul] 325 mg (65 mg iron) tablet 325 mg PO TID Patient Comments: take 1 tablet by mouth three times a day fluticasone propion-salmeterol [Advair Diskus] 250-50 mcg/dose Blister With Device 1 inh INHALATION BID docusate sodium 250 mg Capsule 250 mg PO QDAY fluticasone propion-salmeterol [Advair Diskus] 500-50 mcg/dose blister with device 1 inh inhalation BID Qty: 60 0RF metformin 1,000 mg tablet extended release 24 hr 1,000 mg PO BID Qty: 60 0RF albuterol sulfate 90 mcg/actuation HFA aerosol inhaler 1 inh inhalation QID PRN (Reason: shortness of breath or wheezing) Qty: 8.5 0RF fluticasone propion-salmeterol [Advair HFA] 230-21 mcg/actuation HFA aerosol inhaler 2 puff inhalation BID Qty: 12 0RF famotidine [Pepcid] 20 mg tablet 20 mg PO BID Qty: 10 0RF sucralfate [Carafate] 100 mg/mL suspension 10 ml PO BID Qty: 200 0RF furosemide [Lasix] 40 mg tablet 40 mg PO QAM Qty: 3 0RF Referrals: Jarred Lopez MD [Primary Care Provider, Family Practice] - In 1 week Problem List Clinical Impression: UTI (urinary tract infection), Hypomagnesemia, Dehydration Patient/Caregiver Discharge Instructions Discharge Activity: activity as tolerated Education Materials: Magnesium (Blood), ED Dehydration (Adult), ED CYSTITIS Female Adult Additional Instructions: Discharge Instructions from Dr. Lopez printed for you: 1. After extensive evaluation, there is no life-threatening condition. Such as stroke or heart attack. 2. But your diagnoses include urinary tract infection and low magnesium level and dehydration. 3. Take Levaquin for urinary tract infection. 4. For good hydration, increase oral fluid and maintain clear urine. If dark or yellow, increase oral fluid. Zofran for nausea/vomiting. 5. Take magnesium pills as prescribed. Increase food rich in magnesium. Such as green and leafy vegetables and peanuts and cashews and almonds. 6. See a private doctor on 03/20/2025 for recheck and further care. Ask to review all test results and official radiology reports, to make sure you receive all necessary follow-ups and monitoring, including repeat magnesium level. Ask for help until you are completely better. 7. Seek immediate medical care with worsening or with any concerns. Instrucciones de jason del Dr. Lopez impresas para usted: 1. Tras paty evaluaci?n exhaustiva, no se observa ninguna afecci?n potencialmente mortal, ted un derrame cerebral o un infarto. 2. Sin embargo, atif diagn?sticos incluyen infecci?n del tracto urinario, niveles bajos de magnesio y deshidrataci?n. 3. [place] Levaquin para la infecci?n del tracto urinario. 4. Para paty buena hidrataci?n, aumente la ingesta de l?quidos y mantenga la orina marty. Si la orina es oscura o amarilla, aumente la ingesta de l?quidos. Zofran para las n?useas y los v?mitos. 5. [place] las pastillas de magnesio seg?n lo prescrito. Aumente el consumo de alimentos ricos en magnesio, ted verduras de hoja eliza, cacahuetes, anacardos y almendras. 6. Consulte con un m?dico particular el 04/18/2025 para paty nueva revisi?n y atenci?n adicional. Solicite la revisi?n de todos los resultados de las pruebas y los informes radiol?gicos oficiales para asegurarse de recibir todos los controles y monitoreos necesarios, incluyendo la repetici?n del nivel de magnesio. Solicite ayuda hasta que se recupere por completo. 7. [place] atenci?n m?dica inmediata si empeora o tiene alguna inquietud. Print Language: Grenadian Stand Alone Forms: [employer] Award Info., Work/School Release, Patient Portal Info Letter
[2025-03-18 19:39] VITALS: BP 120/81; PULSE 112; RESP 18; TEMP 37; O2SAT 95
--- NOTE | 2025-03-18 19:40 | XR_ITS ---
Examination: CT cervical spine without contrast 2-D sagittal reconstructions 2-D coronal reconstructions 3-D reconstructions. Exam date and time:March 18, 2025 2148 hrs. Indications: Patient fell today with injury to the neck, neck pain CTDI:vol (mGy) 23.7 DLP: (mGycm) 453 Technique: Multiple 2 mm axial sections of the cervical spine have been obtained. The coronal and sagittal reconstructions have been obtained. 3-D reconstructions have been obtained. Low dose protocols were performed. One or more of the following dose reduction techniques were used; automated exposure control, adjustment of the mA and/or KV according to patient size, use of iterative reconstruction technique. Findings: On the images are blurred by patient motion No cervical vertebral body compression fracture Alignment of the vertebral bodies and posterior spinous processes intact Impression: Study is significantly limited secondary to patient motion No gross fracture
--- NOTE | 2025-03-18 19:40 | XR_ITS ---
Examination: AP chest single view Technique: Sitting portable AP chest single view Date and time: March 18, 2025, 1400 hrs., Comparison April 25, 2024 Indications: Chest pain syncope today. Findings: Mild accentuation bronchovascular markings at the lung bases Mild prominence left ventricle No lobar pneumonia or pulmonary edema Impression: Basilar bronchitis pattern
--- NOTE | 2025-03-18 19:40 | XR_ITS ---
Examination: CT brain head without contrast. 2-D sagittal coronal reconstructions Date and time of exam:March 18, 2025 2149 hrs. Indications: Patient fell today with injury to the head, head pain CTDI: vol (mGy):81 DLP: (mGycm):1513 Technique: Multiple CT axial sections of the brain have been obtained, 5 mm slice thickness. Contrast has not been administered. 2-D sagittal, coronal reconstructions have been obtained Low dose protocols were performed. One or more of the following dose reduction techniques were used; automated exposure control, adjustment of the mA and/or KV according to patient size, use of iterative reconstruction technique. Findings: No significant ventricular enlargement. Intra-axial or extra-axial hemorrhage density is not seen. No mass effect or midline shift Basal cisterns are not remarkable. Fourth ventricle is midline. Cranial vault intact. Impression: Negative for acute hemorrhage, mass effect or midline shift
--- NOTE | 2025-03-18 19:40 | EKG_ITS ---
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
[2025-03-18 20:01] LABS: Lactate (Lactic Acid) 2.2 mMol/L (0.4-2.0)
[2025-03-18 20:04] LABS: Basophils # (Auto) 0.0 Thou/mm3 (0.0-0.2); Basophils % (Auto) 0 % (0-2.5); Eosinophils # (Auto) 0.1 Thou/mm3 (0.0-0.5); Eosinophils % (Auto) 1 % (0-10); Hematocrit 32.9 % (36.0-46.0); Hemoglobin 10.1 g/dL (12.0-16.0); Immature Granulocytes Auto 0.03 Thou/mm3 (0.00-0.00); Lymphocytes # (Auto) 1.7 Thou/mm3 (1.0-4.8); Lymphocytes % (Auto) 23 % (10-50); Mean Corpuscular HGB Conc 30.7 g/dl (31.0-37.0); Mean Corpuscular Hemoglobin 24.0 pg (25.0-35.0); Mean Corpuscular Volume 78 fL (80-100); Monocytes # (Auto) 0.5 Thou/mm3 (0.0-0.8); Monocytes % (Auto) 6 % (0-12); Neutrophils # (Auto) 5.0 Thou/mm3 (1.8-7.7); Neutrophils % (Auto) 69 % (37-80); Nucleated Red Blood Cell # 0.00 Thou/mm3 (0.00-0.00); Nucleated Red Blood Cell % 0 /100 WBC (0); Platelet Count 208 Thou/mm3 (140-440); RDW Standard Deviation 47.8 fL (36.4-46.3); Red Blood Count 4.20 Miln/mm3 (4.00-5.20); White Blood Count 7.3 Thou/mm3 (3.6-11.0)
[2025-03-18 20:15] LABS: Beta Hydroxybutyrate 0.0 mmol/L (<0.6)
[2025-03-18 20:20] LABS: B-Type Natriuretic Peptide < 20 pg/mL (0-100)
[2025-03-18 20:22] LABS: Sed Rate (ESR) 32 mm/hr (0-30)
[2025-03-18 20:23] VITALS: BP 117/76; BP 128/71; BP 141/68; PULSE 103; PULSE 113; PULSE 119
[2025-03-18] MEDS: SODIUM CHLORIDE 0.9% 1000 ML 1,000 ML 999 ML IV ×2 (20:24→22:29)
[2025-03-18 20:25] LABS: D-Dimer 324 ng/mL (<600)
[2025-03-18] MEDS: ONDANSETRON INJ 2 MG/ML INJ 2 ML 4 MG IVP (20:25)
[2025-03-18 20:42] LABS: Alanine Aminotransferase 54 U/L (10-49); Albumin, Serum 3.5 gm/dL (3.5-5.0); Albumin/Globulin Ratio 1.1 (1.2-2.2); Alcohol, Blood Medical < 3.0 mg/dL (0-10.0); Alkaline Phosphatase 119 U/L (46-116); Anion Gap 13 (7-16); Aspartate Amino Transferase 49 U/L (0-34); BUN/Creatinine Ratio 11 Ratio (12-20); Bilirubin,Direct 0.2 mg/dL (0.0-0.3); Bilirubin,Total 0.6 mg/dL (0.3-1.2); Blood Urea Nitrogen 13 mg/dL (9-23); C-Reactive Protein 3.0 mg/dL (0.0-0.9); Calcium 8.8 mg/dL (8.3-10.6); Calcium (Corrected) 9.2 mg/dL (8.5-10.1); Carbon Dioxide 24.3 mMol/L (20.0-31.0); Chloride 102 mMol/L (98-107); Creatinine (Component) 1.2 mg/dL (0.6-1.3); Estimated Creatinine Clearance 66.0 mL/min (>60); Globulin 3.1 gm/dL (2.3-3.5); Glucose 295 mg/dL (74-106); Lipase 35 U/L (12-53); Magnesium 1.2 mg/dL (1.6-2.6); Osmolality,Calculated 288 (275-295); Potassium 3.8 mMol/L (3.4-5.1); Procalcitonin 0.25 ng/ml (0.0-0.49); Sodium 139 mMol/L (136-145); Thyroid Stimulating Hormone 2.11 uIU/mL (0.55-4.78); Total Protein 6.6 gm/dL (5.7-8.2); Troponin I < 0.002 ng/mL (0.0-0.045); eGFR 53 See Note
--- NOTE | 2025-03-18 20:51 | XR_ITS ---
Examination: CT chest, without intravenous contrast. CT abdomen, without intravenous contrast. CT pelvis, without intravenous contrast. 2-D sagittal and coronal reconstructions. 3-D reconstructions. Date and time of exam:March 18, at 2025, 2152 hrs. Indications: Patient fell today with injury to the chest and abdomen, chest pain abdomen pain CTDI vol (mgy) 26.1. DLP (MGycm)1000 Technique: Multiple CT images, 3.0 mm slice thickness, obtained chest, abdomen, pelvis, with the high-resolution 64 slice scanner.. Sagittal and coronal 2-D reconstructions are obtained. 3-D reconstructions Low dose protocols were performed. One or more of the following dose reduction techniques were used; automated exposure control, adjustment of the mA and/or KV according to patient size, use of iterative reconstruction technique. Findings: Thoracic aorta pulmonary arteries intact No hemopericardium No pneumothorax pulmonary contusion or hemothorax The manubrium the body the sternum intact Chronic osteoporotic compressions T7 T4, T3, T2 Date and detail is reduced secondary to patient motion There appear to be bilateral old rib fractures Hepatomegaly 23 cm No liver splenic or renal laceration on this noncontrast study Aorta is intact, no free blood in the abdomen Absent gallbladder Negative for pneumoperitoneum Right lateral abdominal wall hernia defect containing fluid Urinary bladder intact Air in the urinary bladder, clinical correlation advised Hips bones of the pelvis intact Impression: This study is limited secondary to patient motion Thoracic aorta pulmonary arteries intact No pneumothorax pulmonary contusion or hemothorax No abdominal parenchymal laceration Abdominal aorta intact No free blood in the abdomen or pelvis
[2025-03-18 21:00] LABS: Collection Type, Urine Clean Catch
[2025-03-18 21:10] LABS: Bacteria,Urine 1+; Bilirubin,Urine Negative (Negative); Blood,Urine 1+ (Negative); Clarity,Urine Turbid (Clear/Hazy); Color,Urine Yellow (Lt Yel-Yel); Culture Indicated,Urine Contaminated; Glucose, Urine 2+ (Negative); Ketones,Urine Trace (Negative); Leukocyte Esterase,Urine Positive (Negative); Nitrite,Urine Positive (Negative); PH,Urine 6.0 (5.0-7.0); Protein,Urine 1+ (Neg - Trace); RBC,Urine 29 /hpf (0-3); Specific Gravity,Urine 1.025 (1.001-1.035); Squamous Epithelial Cell,Urine 21 /hpf (0-5); Urobilinogen,Urine Negative mg/dL (0.0-1.0); WBC,Urine 74 /hpf (0-5)
[2025-03-18] MEDS: Magnesium Sulfate 2 GM Ivpb 2 GM/50 ML BAG IV (21:13)
[2025-03-18 21:16] LABS: Amphetamine/Methamp Scrn,U Negative (Negative); Barbiturate Screen,Urine Negative (Negative); Benzodiazepines Screen,Urine Negative (Negative); Benzoylecgonine Screen, Ur Negative (Negative); Fentanyl Screen,Urine Negative (Negative); Opiate Screen,Urine Negative (Negative); THC Screen,Urine Negative (Negative)
[2025-03-18] MEDS: DIAZEPAM INJ 5 MG/ML VIAL 2 ML 7.5 MG IVP (21:35)
[2025-03-18 21:45] VITALS: BP 137/92; PULSE 90; RESP 18; TEMP 36.6; O2SAT 100
[2025-03-18] MEDS: cefTRIAXone/D5w 1gm IV premix 1 GM/50 ML BAG IV (22:27)
[2025-03-18 23:00] LABS: Reflex Lactate? Y
[2025-03-18 23:56] LABS: Lactic Acid, 3 HR 1.1 mMol/L (0.4-2.0)
[2025-03-19] MEDS: INSULIN HUM REGULAR 1 UNIT/0.01 ML (PER UNIT) 8 UNIT SC (00:02)
[2025-03-19 00:10] VITALS: BP 150/83; PULSE 93; RESP 18; O2SAT 999
== END 2025-03-19 00:11 | disposition home or self-care (01) ==
PROVIDERS: Emergency Provider Emergency Medicine; PCP Family Medicine
DX: E86.0 Dehydration (principal); N39.0 Urinary tract infection, site not specified; E83.42 Hypomagnesemia; R00.0 Tachycardia, unspecified; R51.9 Headache, unspecified; R07.9 Chest pain, unspecified; I11.0 Hypertensive heart disease with heart failure; I50.9 Heart failure, unspecified; E11.65 Type 2 diabetes mellitus with hyperglycemia; Z79.84 Long term (current) use of oral hypoglycemic drugs; Z79.85 Long-term (current) use of injectable non-insulin antidiabetic drugs
CPT/HCPCS: 36415; 70450; 71045; 71250; 72125; 74176; 80053; 80307; 80320; 81001; 82010; 82248; 83605; 83690; 83735; 83880; 84145; 84443; 84484; 85025; 85379; 85652; 86140; 87040; 87400; 87811; 93005; 96361; 96365; 96366; 96375; 99284; J0696; J1815; J2405; J3360; J3475; J7030; G0480

== ENCOUNTER → 2025-04-02 | Outpatient (CLI) | payer MEDICAID, SELFPAY ==
--- NOTE | 2025-04-02 16:57 | XR_ITS ---
Examination: Knee bilateral, 6 views Technique: Knee AP, lateral, oblique each knee total 6 views Indications: Bilateral knee pain several years Date and time of exam: April 02, 2025, 1708 hrs. Findings: Moderate osteopenia. Bilateral advanced tricompartment osteoarthritis Bilateral severe narrowing [id number] medial joint spaces No fractures Impression: Bilateral advanced tricompartment osteoarthritis
== END | disposition home or self-care (01) ==
PROVIDERS: PCP Internal Medicine; Referring Provider Internal Medicine; Visit Provider Internal Medicine
DX: M17.0 Bilateral primary osteoarthritis of knee (principal)
CPT/HCPCS: 73562

== ENCOUNTER → 2025-06-12 | Outpatient (CLI) | payer MEDICAID, SELFPAY ==
--- NOTE | 2025-06-12 13:15 | XR_ITS ---
Examination: Screening digital mammography, bilateral Computer aided detection 3-D breast Tomosynthesis, bilateral Date and time of exam: June 12, 2025, 1356 hours, compared to mammograms dating to September 01, 2022 Indication: Screening Technique: Nonmagnified MLO, CC views of the breasts to been obtained, reconstructed from 3-D Tomosynthesis images. R2 computer aided detection program utilized for evaluation of suspicious masses and/or abnormal calcifications. 3-D Tomosynthesis images obtained. Findings: Scattered areas of fibroglandular density. 6 mm oval circumscribed mass retroareolar region left breast Impression: BI-RADS Category 0: Incomplete: Need additional imaging evaluation Recommend follow-up spot tomographic views of the 6 mm circumscribed nodule retroareolar region left breast as well as left breast sonography to complete the work-up
== END | disposition home or self-care (01) ==
LOC: CDIM 13:42
PROVIDERS: PCP Internal Medicine; Referring Provider Internal Medicine; Visit Provider Internal Medicine
DX: Z12.31 Encounter for screening mammogram for malignant neoplasm of breast (principal); N63.42 Unspecified lump in left breast, subareolar
CPT/HCPCS: 77063; 77067